=== PATIENT | male | born 1930 | race Caucasian/White ===

== ENCOUNTER 2016-09-06 13:28 | Inpatient (IN) | payer MEDICARE, MEDICAID ==
[~2016-09-06] VITALS: Ht 175.3 cm; Wt 67.2 kg
[~2016-09-06 13:28] MED LIST: ADV250INH IH; ALBU8.5H4 IH; AMIO200T6 PO; ATOR20TA PO; CA C1TAB87 PO; CARV3.12 PO; EXELON 13.3 MG TOPICAL; Isosorbide Mononitrate PO; MOME17SP NS; MONT10TA20 PO; OMEP-113 PO; QUET100T PO; QUET200T PO; WARF2TAB PO; oxygen
[2016-09-06 13:43] VITALS: BP 116/65; PULSE 74; RESP 16; O2SAT 95
--- NOTE | 2016-09-06 14:34 | ED.REPORT ---
HPI-General Illness Date of Service Sep 06, 2016 ED Provider: John Sr MD The patient is an 85 year old male with history of Alzheimer's, CHF, COPD, hypertension, and atrial fibrillation, who was brought to the emergency department by his for difficulty swallowing that has been worsening over the last few weeks. He also reports left-sided chest pain that has been ongoing for the last few months. He describes the pain as "tightness. " He has also noticed abdominal pain after eating. He is not in any pain at this time. He denies shortness of breath, vomiting, fever or chills. Nursing Notes Stated Complaint: LOW PULSE,DIFFICULTY SWALLOWING Chief Complaint: Dysrhythmia/Cardiac Nursing Notes Reviewed: Yes Allergies: Coded Allergies: Sulfa (Sulfonamide Antibiotics) (Verified Allergy, Unknown, 02/03/14) aspirin (Verified Allergy, Unknown, 02/03/14) ibuprofen (Verified Allergy, Unknown, 06/15/12) yellow dye (Verified Allergy, Unknown, 02/03/14) Scheduled ([oxygen]) 2 L NA HS Alendronate/Vitamin D3 (Alendronate/Vitamin D3) 1 Each Tablet 1 TAB PO WEEKLY on saturdays Amiodarone (Amiodarone) 100 Mg Tablet 100 MG PO DAILY Atorvastatin Calcium (Atorvastatin Calcium) 10 Mg Tablet 10 MG PO HS Fluticasone/Salmeterol (Advair 250-50 Diskus) 60 Puff/Inh Disk 1 PUFF IH BID Furosemide (Furosemide) 20 Mg Tab 20 MG PO Q2DAY Isosorbide MN ER (Isosorbide MN ER) 30 Mg Tab.er.24h 60 MG PO DAILY Memantine HCl (Namenda-XR) 28 Mg Cap.spr.24 28 MG PO DAILY Mometasone Furoate (Nasonex) 17 Gm [place].pump 1 SPRAY NS BID Montelukast (Singulair) 10 Mg Tablet 10 MG PO HS Omeprazole Magnesium (Omeprazole) 20 Mg Capsule.dr 20 MG PO DAILY Quetiapine Fumarate (Seroquel) 100 Mg Tablet 100 MG PO HS monday, monday , monday Rivastigmine (Rivastigmine) 13.3 Mg/24 Hour Patch.td24 2 PATCH TRANSDERM DAILY Warfarin Sodium (Warfarin Sodium) 2 Mg Tablet 1 MG PO DAILY Warfarin Sodium (Warfarin Sodium) 2 Mg Tablet 2 MG PO DAILY monday, , monday,monday Scheduled PRN Albuterol HFA (Albuterol HFA) 8.5 Gm Hfa.aer.ad 2 PUFF IH Q4 PRN PRN For Shortness of Breath Miscellaneous Medications Cetirizine HCl (Zyrtec) 10 Mg Capsule 10 MG PO General Time Seen by MD: 14:32 Chief Complaint Other (difficulty swallowing) Hx Obtained From: Patient (limited) Arrived By: Walk-in Sudden in Onset?: No Onset Occurred: More than a week ago... Symptom Duration: Since onset Location: : Abdomen: Chest Quality: Painful Severity: Current: No pain currently Severity: Maximum: Moderate Recent Healthcare: No recent doctor visit, No recent hospitalization Similar Sx Previous: No Past Medical History Past Medical History 1. Systolic congestive heart failure, EF 15%, severe global left ventricular hypokinesis, with moderate to severe mitral regurgitation. 2. COPD on home oxygen 2 L at night next in 3. Alzheimer's dementia 4. Hypertension excellent 5. History of proximal A. fib on Coumadin Past Surgical History 1. Tonsillectomy as a child 2. Appendectomy 3. Left sided hernia repair Family History Noncontributory Smoking History Former Smoker Social History Alcohol Use: Denies alcohol use Drug Use: Denies drug use Other Social History: Good social support, , Local resident Ambulatory Status Independent Review of Systems +difficulty swallowing Full Review of Systems Constitutional: Denies: Chills, Fever Respiratory: Denies: Shortness of breath Cardiovascular: Reports: Chest pain GI: Reports: Abdominal pain, Denies: Vomiting Complete sys rev & neg: except as marked. Physical Exam Vital Signs Vital Signs Date Time Temp Pulse Resp B/P Pulse Ox O2 Delivery O2 Flow Rate FiO2 09/06/16 13:43 36.9 74 16 116/65 95 Initial VS: Reviewed Head / Eyes: Atraumatic, Normocephalic, PERRL ENT: Mucous membranes moist, Conjunctiva normal, No scleral icterus Neck: Supple, Non-tender, Full range of motion Respiratory: Breath sounds normal, Clear to auscultation, No respiratory distress Cardiovascular: Regular rate & rhythm, Heart sounds normal, Intact distal pulses Lymphatic: No lymphadenopathy Extremities: Vascular intact, Neuro intact, No swelling, No tenderness Skin: Warm, Dry, No cyanosis Neurologic: Alert, Oriented, Nonfocal Psychiatric: Mood/affect normal, Behavior normal, Normal thought content General/Constitutional: Awake, Alert, Cooperative Abdomen: Soft, No guarding, No rebound, BS normoactive, No distention, No hernia, No palpable mass, No pulsatile mass Tenderness/Guarding/Rebound: Positive: Tender epigastric, Negative: Tender LLQ..., Tender LUQ..., Tender RLQ..., Tender RUQ... Lower Extremity / Pelvis / MS: Neurologic intact, Vascular intact, No edema No calf swelling or tenderness Interpretation & Diagnostics Lab Results Interpretation Result Diagram: 09/06/16 1507 09/06/16 1507 Test 09/06/16 15:07 White Blood Count 6.8th/mm3 (3.8-10.1) Red Blood Count 4.22mil/mm3 (4.40-5.80) Hemoglobin 12.0g/dL (13.8-17.2) Hematocrit 37.9% (41.0-50.0) Mean Corpuscular Volume 89.8fL (81-100) Mean Corpuscular Hemoglobin 28.4pg (27.0-35.0) Mean Corpuscular Hemoglobin Concent 31.7% (32.0-37.0) Red Cell Distribution Width 13.8% (12.3-15.4) Platelet Count 209bil/L (150-400) Neutrophils (%) (Auto) 68.8% (40-74) Lymphocytes (%) (Auto) 12.0% (14-46) Monocytes (%) (Auto) 16.4% (4-12) Eosinophils (%) (Auto) 0.9% (0-5) Basophils (%) (Auto) 0.4% (0-3) Sodium Level 138mEq/L (134-144) Potassium Level 4.6mEq/L (3.5-5.2) Chloride Level 100mEq/L (97-108) Carbon Dioxide Level 23mmol/L (18-29) Blood Urea Nitrogen 29mg/dL (8-27) Creatinine 1.93mg/dL (0.76-1.27) Estimat Glomerular Filtration Rate 35mL/min (>59) Glucose Level 88mg/dL (60-99) Calcium Level 8.7mg/dL (8.5-10.1) Magnesium Level 2.1mg/dL (1.6-2.6) Total Bilirubin 0.5mg/dL (0.0-1.2) Aspartate Amino Transf (AST/SGOT) 136U/L (0-50) Alanine Aminotransferase (ALT/SGPT) 64U/L (0-44) Alkaline Phosphatase 346U/L (25-160) Troponin T < 0.010ug/L (0.0-0.011) Total Protein 6.6g/dL (6.4-8.4) Albumin 3.5g/dL (3.4-5.0) Hold Alvarez Top Tube Received (Received) ECG Interpretation ECG Interpretation: Sinus vs ectopic atrial rhythm at 78 bpm with RBBB and LAFB No ST segment elevation Inferior Q waves present No acute T wave abnormalities When compared to prior dated 05/28/2014 he remains with IVCD and inferior Q waves are not new Time: 15:00 Interpreted by: ED physician X-Ray Chest Interpretation Chest Xray Interpretation: IMPRESSION: Right lower lobe pneumonia. Dictated by: Cyndee Lackey M.D. on 09/06/2016 at 15:43 Interpretation / Wet Read by: Interpret - Radiologist Re-Eval/Medical Decision Med Decision/Clinical Course The patient is an 85 year old male with history of Alzheimer's, CHF, COPD, hypertension, and atrial fibrillation, who was brought to the emergency department by his for difficulty swallowing that has been worsening over the last few weeks. The patient has underlying dementia and initially his history is quite limited. Here in the emergency department he is afebrile with stable vital signs and examination as above. Swallow eval shows pharyngeal swallowing dysfunction and probably esophageal dysfunction. Chest x-ray demonstrated a right lower lobe pneumonia. LABS: No leukocytosis, hct 37.9, BUN 29 and creatinine 1.93 - acutely elevated from baseline, moderately elevated transaminases, neg trop, no sig electrolyte abnormalities Overall presentation most consistent with aspiration pneumonia in the setting of swallowing dysfunction. Cause of his swallowing difficulties are unclear. At this time, he has no other lateralizing neurologic deficits to suggest acute ischemic stroke. His symptoms of an insidious in onset over weeks and regardless he is certainly not a TPA candidate. He has been started on IV antibiotics and will be admitted to the hospitalist service for further management. Source of Hx: Old records Time of Eval: 16:33 Re-Evaluation/Progress Note: Rechecked the patient. Discussed plan for admission with the patient and his . They understand and agree. All questions were addressed. Consultation : Consulted With: Hospitalist Requested Call at: 15:58 Vocational Evaluator: Will see patient, Agrees with eval, Agrees with plan, Accepts admit Counseled Regarding: Diagnosis, Lab results, Need for admission Discharge & Departure Primary Impression: Acute kidney injury Additional Impressions: Failure to thrive Failure to thrive age range: in adult Qualified Code: R62.7 - Adult failure to thrive Dysphagia Dysphagia type: pharyngoesophageal phase Qualified Code: R13.14 - Dysphagia , pharyngoesophageal phase Pneumonia Pneumonia type: due to unspecified organism Laterality: right Lung location : lower lobe of lung Qualified Code: J18.9 - Pneumonia, unspecified organism Disposition: ADMITTED TO HOSPITAL Discharge Condition All VS Reviewed: Yes Condition: Stable Referrals: [facility] (PCP) Krystleibatiya Attestation Portions of this note were transcribed by Gema Werner. I, Dr. Sr personally performed the history, physical exam and medical decision-making; I reviewed and confirmed the accuracy of the information in the transcribed note. Signed by: Tory Browning, 09/06/2016 and 1700. copies to: [facility] John Sr MD Sep 06, 2016 14:34 Gema Werner Sep 06, 2016 15:11
[2016-09-06 15:18] LABS: BASOPHILS % (AUTO) 0.4 % (0-3); EOSINOPHILS % (AUTO) 0.9 % (0-5); MONOCYTES % (AUTO) 16.4 % (4-12); Mean Corpuscular Hemoglobin 28.4 pg (27.0-35.0); Mean Corpuscular Volume 89.8 fL (81-100); NEUTROPHILS % (AUTO) 68.8 % (40-74); Platelet Count 209 bil/L (150-400)
[2016-09-06] MEDS ORDERED: 0.9% Sodium Chloride 1,000 ML IV ONE (15:35)
[2016-09-06 15:45] LABS: Magnesium 2.1 mg/dL (1.6-2.6)
--- NOTE | 2016-09-06 15:46 | DRSVH ---
PROCEDURE: X-RAY CHEST ONE VIEW, PORTABLE ([id number]) INDICATIONS: 85-year-old man with chest pain, dysrthymia. TECHNIQUE: One view of the chest was acquired. COMPARISON: [facility], CR, CHEST 1VW (PORTABLE), 11/19/2014, 17:56. [facility], CR, CHEST 1VW (PORTABLE), 02/03/2014, 13:49. FINDINGS: Surgical changes and devices: None. Lungs and pleura: There are right basilar infiltrate and consolidation consistent with pneumonia. Ca lcified granulomatous in the left lung base. There is left basilar scarring. No pleural effusions or pneumothorax. Mediastinum: Mediastinal contours appear normal. Heart size is mildly increased. Bones and chest wall: No suspicious bony lesions. Overlying soft tissues appear unremarkable. IMPRESSION: Right lower lobe pneumonia. Dictated by: Cyndee Lackey M.D. on 09/06/2016 at 15:43 Approved by: Cyndee Lackey M.D. on 09/06/2016 at 15:45
[2016-09-06 15:47] LABS: TROPONIN T < 0.010 ug/L (0.0-0.011)
--- NOTE | 2016-09-06 16:06 | NUR ---
Evaluation completed. Recommend modified barium swallow study. Please go to "Notes" then click on "Assessments and Notes" (bottom left corner of screen). Then select appropriate discipline tab on top of screen.
[2016-09-06] MEDS ORDERED: Azithromycin Inj 500 MG in Dextrose 5% w/Vial Mate 250 ML IV ONE (16:25)
[2016-09-06] MEDS ORDERED: cefTRIAXone Inj 2,000 MG in Dextrose 5% Minibag Plus 50 ML IV ONE (16:25)
[2016-09-06] MEDS ORDERED: CETI10CA PO (16:49)
[2016-09-06] MEDS ORDERED: ALEN70TA46 PO (16:49)
[2016-09-06] MEDS ORDERED: RIVA1PAT13 TRANSDERM (16:49)
[2016-09-06] MEDS ORDERED: AMIO100T4 PO (16:49)
[2016-09-06] MEDS ORDERED: FUR20 PO (16:49)
[2016-09-06] MEDS ORDERED: ISOS30TA4 PO (16:49)
[2016-09-06] MEDS ORDERED: ATOR10TA66 PO (16:49)
[2016-09-06] MEDS ORDERED: MEMA28CA PO (16:49)
[2016-09-06] MEDS ORDERED: WARF2TAB7 PO (16:49)
[2016-09-06] MEDS ORDERED: Piperacillin-Tazo 3.375 Gm Inj 3.375 GM in Dextrose 5% Minibag Plus 50 ML IV ONE (17:05)
[2016-09-06] MEDS ORDERED: Vancomycin Dose per Pharmacist XX ONE (17:05)
[2016-09-06 17:24] VITALS: BP 133/84; PULSE 100; RESP 16; O2SAT 93
[2016-09-06] MEDS ORDERED: Vancomycin Inj 1,250 MG in 0.9% Sodium Chloride 250 ML IV ONE (17:35)
--- NOTE | 2016-09-06 19:30 | NUR ---
Admit Pt admit to floor. Pt ambulated to bed. VSS. Pt is hard of hearing even with hearing aide.
[2016-09-06] MEDS ORDERED: Famotidine Inj 20 MG in IV Premix 1 EACH IV SCH (21:00)
[2016-09-06] MEDS ORDERED: 0.9% Sodium Chloride 1,000 ML IV SCH (21:06)
[2016-09-06] MEDS ORDERED: Albuterol 2.5 mg/3 mL Inhalation Solution NEB PRN (21:10)
--- NOTE | 2016-09-06 21:22 | PCM.HPMED ---
Subjective Date of Service Sep 06, 2016 Primary Provider: Admitting Physician: Rylee Stuart MD Primary Care Physician: Doroteo Cooper MD Attending Physician: Rylee Stuart MD Admit Status: From the Emergency Department, Full Admit, Remote Telemetry Chief Complaint: Difficulty swallowing History of Present Illness: This is an 85-year-old male with a history of Alzheimer's CHF COPD hypertension atrial fibrillation who was brought to the emergency room by his for increasing problems with swallowing which has been progressive over the past few weeks. No evidence of any fevers chills shortness of breath or wheezing. His evaluation in the emergency room did show a right lower lobe pneumonia. I am not able to get any more history as patient is not very forthcoming or communicative and is currently not at bedside. His white count was noted to be 6.8 and his BUN was 29 creatinine 1.93 which is a little bit worse than last documented in our chart which was several years ago. He denies any chest pain. Denies any nausea or vomiting. He denies any alteration in bowel movements. Review of Systems: All other review of systems are difficult to review with patient hence unobtainable secondary to patient's dementia Allergies Coded Allergies: Sulfa (Sulfonamide Antibiotics) (Verified Allergy, Unknown, 02/03/14) aspirin (Verified Allergy, Unknown, 02/03/14) ibuprofen (Verified Allergy, Unknown, 06/15/12) yellow dye (Verified Allergy, Unknown, 02/03/14) Home Medications Scheduled ([oxygen]) 2 L NA HS Alendronate/Vitamin D3 (Alendronate/Vitamin D3) 1 Each Tablet 1 TAB PO WEEKLY on saturdays Amiodarone (Amiodarone) 100 Mg Tablet 100 MG PO DAILY Atorvastatin Calcium (Atorvastatin Calcium) 10 Mg Tablet 10 MG PO HS Fluticasone/Salmeterol (Advair 250-50 Diskus) 60 Puff/Inh Disk 1 PUFF IH BID Furosemide (Furosemide) 20 Mg Tab 20 MG PO Q2DAY Isosorbide MN ER (Isosorbide MN ER) 30 Mg Tab.er.24h 60 MG PO DAILY Memantine HCl (Namenda-XR) 28 Mg Cap.spr.24 28 MG PO DAILY Mometasone Furoate (Nasonex) 17 Gm [place].pump 1 SPRAY NS BID Montelukast (Singulair) 10 Mg Tablet 10 MG PO HS Omeprazole Magnesium (Omeprazole) 20 Mg Capsule.dr 20 MG PO DAILY Quetiapine Fumarate (Seroquel) 100 Mg Tablet 100 MG PO HS monday, monday , monday Rivastigmine (Rivastigmine) 13.3 Mg/24 Hour Patch.td24 2 PATCH TRANSDERM DAILY Warfarin Sodium (Warfarin Sodium) 2 Mg Tablet 1 MG PO DAILY Warfarin Sodium (Warfarin Sodium) 2 Mg Tablet 2 MG PO DAILY monday, , monday,monday Scheduled PRN Albuterol HFA (Albuterol HFA) 8.5 Gm Hfa.aer.ad 2 PUFF IH Q4 PRN PRN For Shortness of Breath Miscellaneous Medications Cetirizine HCl (Zyrtec) 10 Mg Capsule 10 MG PO PMH Past Medical History 1. Systolic congestive heart failure, EF 15%, severe global left ventricular hypokinesis, with moderate to severe mitral regurgitation. 2. COPD on home oxygen 2 L at night next in 3. Alzheimer's dementia 4. Hypertension excellent 5. History of proximal A. fib on Coumadin Past Surgical History 1. Tonsillectomy as a child 2. Appendectomy 3. Left sided hernia repair Family History Unobtainable Social History Hx Alcohol Use: No Hx Substance Use: No Hx Tobacco Use: Yes (remote tobacco use in high school through days quit over 50 years ago) Smoking Status: Former Smoker Living Arrangement: with Family Exam Vital Signs Vital Sign - Last Date Time Temp Pulse Resp B/P Pulse Ox O2 Delivery O2 Flow Rate FiO2 09/06/16 17:24 100 16 133/84 93 Room Air 09/06/16 13:43 36.9 Exam Constitutional: Elderly man in no acute distress Head: Normocephalic atraumatic Neck: No adenopathy Chest: Reveals some crackles at his right base Cor: Regular rate and rhythm S1-S2 Abdomen: Soft nontender bowel sounds present Extremities: No pedal edema Psych: Blunted affect Skin: No rashes Neuro: Alert and oriented 3 Motor and sensory are intact bilaterally Lab and Diagnostics Labs Laboratory Tests 72 Hours Test 09/06/16 15:07 White Blood Count 6.8th/mm3 (3.8-10.1) Red Blood Count 4.22mil/mm3 (4.40-5.80) Hemoglobin 12.0g/dL (13.8-17.2) Hematocrit 37.9% (41.0-50.0) Mean Corpuscular Volume 89.8fL (81-100) Mean Corpuscular Hemoglobin 28.4pg (27.0-35.0) Mean Corpuscular Hemoglobin Concent 31.7% (32.0-37.0) Red Cell Distribution Width 13.8% (12.3-15.4) Platelet Count 209bil/L (150-400) Neutrophils (%) (Auto) 68.8% (40-74) Lymphocytes (%) (Auto) 12.0% (14-46) Monocytes (%) (Auto) 16.4% (4-12) Eosinophils (%) (Auto) 0.9% (0-5) Basophils (%) (Auto) 0.4% (0-3) Sodium Level 138mEq/L (134-144) Potassium Level 4.6mEq/L (3.5-5.2) Chloride Level 100mEq/L (97-108) Carbon Dioxide Level 23mmol/L (18-29) Blood Urea Nitrogen 29mg/dL (8-27) Creatinine 1.93mg/dL (0.76-1.27) Estimat Glomerular Filtration Rate 35mL/min (>59) Glucose Level 88mg/dL (60-99) Lactic Acid Level 1.3mmol/L (0.4-2.0) Calcium Level 8.7mg/dL (8.5-10.1) Magnesium Level 2.1mg/dL (1.6-2.6) Total Bilirubin 0.5mg/dL (0.0-1.2) Aspartate Amino Transf (AST/SGOT) 136U/L (0-50) Alanine Aminotransferase (ALT/SGPT) 64U/L (0-44) Alkaline Phosphatase 346U/L (25-160) Troponin T < 0.010ug/L (0.0-0.011) Total Protein 6.6g/dL (6.4-8.4) Albumin 3.5g/dL (3.4-5.0) Procalcitonin 0.28ng/mL (0.00-0.08) Hold Alvarez Top Tube Received (Received) Result Diagram: 09/06/16 1507 09/06/16 1507 X-Rays, CTs and MRIs PROCEDURE: X-RAY CHEST ONE VIEW, PORTABLE ([id number]) INDICATIONS: 85-year-old man with chest pain, dysrthymia. TECHNIQUE: One view of the chest was acquired. COMPARISON: [facility], CR, CHEST 1VW (PORTABLE), 11/19/2014, 17: 56. [facility], CR, CHEST 1VW (PORTABLE), 02/03/2014, 13:49. FINDINGS: Surgical changes and devices: None. Lungs and pleura: There are right basilar infiltrate and consolidation consistent with pneumonia. Calcified granulomatous in the left lung base. There is left basilar scarring. No pleural effusions or pneumothorax. Mediastinum: Mediastinal contours appear normal. Heart size is mildly increased. Bones and chest wall: No suspicious bony lesions. Overlying soft tissues appear unremarkable. IMPRESSION: Right lower lobe pneumonia. Dictated by: Cyndee Lackey M.D. on 09/06/2016 at 15:43 Approved by: Cyndee Lackey M.D. on 09/06/2016 at 15:45 Assessment & Plan #Right lower lobe pneumonia, acute, present on admission Possible aspiration pneumonia given his recent problems with swallowing difficulties so we will place on IV PIP or cell and, IV azithromycin to cover atypicals Check sputum studies including for Legionella, pneumococcal, sputum PCR # Progressive dysphagia, subacute, present on admission Initiate swallow evaluation by speech therapy May need further evaluation for this The meantime we will make nothing by mouth # Hypertension, chronic, present on admission Monitor blood pressures and treat appropriately # Atrial fibrillation on warfarin therapy, chronic problem present on admission Will hold Medication for now until his swallow evaluation tomorrow # DVT prophylaxis Patient is on warfarin therapy # CODE STATUS Unable to discuss with patient so by default patient is full code Resuscitation Status: CPR: Attempt Resuscitation Time spent 60 minutes Rylee Stuart MD Sep 06, 2016 21:22
[2016-09-06 21:30] VITALS: BP 143/80; PULSE 72; RESP 16; O2SAT 95
[2016-09-06 21:57] LABS: INR 3.26 ratio
[2016-09-06 22:25] VITALS: PULSE 77; RESP 18; O2SAT 98
[2016-09-06] MEDS: Heparin 5,000 Unit/mL Inj SUBQ SCH (22:25)
--- NOTE | 2016-09-06 22:30 | NUR ---
Isolation Precautions Droplet precautions
--- NOTE | 2016-09-06 22:39 | PCM.CONPHA ---
Subjective Date of Service: Sep 06, 2016 Difficulty swallowing Reason for Pharmacy Consult: Anticoagulation Management Objective Vital Signs Date Time Temp Pulse Resp B/P Pulse Ox O2 Delivery O2 Flow Rate FiO2 09/06/16 21:30 37.2 72 16 143/80 95 Room Air 09/06/16 17:24 100 16 133/84 93 Room Air 09/06/16 13:43 36.9 74 16 116/65 95 Weight (Kilograms): 64.800 Height (Feet): 5 Height (Inches): 9.00 Test 09/06/16 15:07 White Blood Count 6.8th/mm3 (3.8-10.1) Red Blood Count 4.22mil/mm3 (4.40-5.80) Hemoglobin 12.0g/dL (13.8-17.2) Hematocrit 37.9% (41.0-50.0) Mean Corpuscular Volume 89.8fL (81-100) Mean Corpuscular Hemoglobin 28.4pg (27.0-35.0) Mean Corpuscular Hemoglobin Concent 31.7% (32.0-37.0) Red Cell Distribution Width 13.8% (12.3-15.4) Platelet Count 209bil/L (150-400) Neutrophils (%) (Auto) 68.8% (40-74) Lymphocytes (%) (Auto) 12.0% (14-46) Monocytes (%) (Auto) 16.4% (4-12) Eosinophils (%) (Auto) 0.9% (0-5) Basophils (%) (Auto) 0.4% (0-3) Prothrombin Time 35.7sec (8.1-12.5) Prothromb Time International Ratio 3.26ratio Sodium Level 138mEq/L (134-144) Potassium Level 4.6mEq/L (3.5-5.2) Chloride Level 100mEq/L (97-108) Carbon Dioxide Level 23mmol/L (18-29) Blood Urea Nitrogen 29mg/dL (8-27) Creatinine 1.93mg/dL (0.76-1.27) Estimat Glomerular Filtration Rate 35mL/min (>59) Glucose Level 88mg/dL (60-99) Lactic Acid Level 1.3mmol/L (0.4-2.0) Calcium Level 8.7mg/dL (8.5-10.1) Magnesium Level 2.1mg/dL (1.6-2.6) Total Bilirubin 0.5mg/dL (0.0-1.2) Aspartate Amino Transf (AST/SGOT) 136U/L (0-50) Alanine Aminotransferase (ALT/SGPT) 64U/L (0-44) Alkaline Phosphatase 346U/L (25-160) Troponin T < 0.010ug/L (0.0-0.011) Total Protein 6.6g/dL (6.4-8.4) Albumin 3.5g/dL (3.4-5.0) Procalcitonin 0.28ng/mL (0.00-0.08) Hold Alvarez Top Tube Received (Received) Assessment/Plan Assessment/Plan Warfarin per Rx Indication: A-Fib Home Dose: unable to verify with Pt; 1 - 2 mg daily? Hold dose tonight until swallow eval tomorrow Daily INR ordered Carlos Dai PharmD Sep 06, 2016 22:39
[2016-09-06] MEDS ORDERED: ALBU8.5H2 INHALATION (22:46)
[2016-09-06] MEDS ORDERED: OMEP20TA24 PO (22:46)
[2016-09-07 01:47] LABS: APPEARANCE,URINE CLEAR (CLEAR,HAZY); COLOR,URINE YELLOW (YELLOW)
[2016-09-07 01:48] LABS: OCCULT BLOOD,URINE NEGATIVE (NEGATIVE); PH,URINE 7.5 (5.0-8.0); UROBILINOGEN,URINE NORMAL (NORMAL)
[2016-09-07 05:24] VITALS: BP 140/76; PULSE 85; RESP 16; O2SAT 95
[2016-09-07 05:38] LABS: BASOPHILS % (AUTO) 0.3 % (0-3); EOSINOPHILS % (AUTO) 1.1 % (0-5); MONOCYTES % (AUTO) 16.5 % (4-12); Mean Corpuscular Hemoglobin 28.4 pg (27.0-35.0); Mean Corpuscular Volume 89.6 fL (81-100); NEUTROPHILS % (AUTO) 66.1 % (40-74); Platelet Count 193 bil/L (150-400)
[2016-09-07] MEDS: Piperacillin-Tazo 3.375 Gm Inj 3.375 GM in Dextrose 5% Minibag Plus 50 ML IV SCH ×2 (05:46→18:16)
[2016-09-07 06:14] LABS: INR 3.18 ratio
[2016-09-07] MEDS: Heparin 5,000 Unit/mL Inj SUBQ SCH ×2 (09:10→22:11)
[2016-09-07] MEDS: Azithromycin Inj 500 MG in Dextrose 5% w/Vial Mate 250 ML IV SCH (10:16)
--- NOTE | 2016-09-07 11:09 | PCM.PNMED ---
Subjective Date of Service Sep 07, 2016 Subjective No overnight event Patient has taken hearing difficulties Oriented to name and place knows it's hospital Patient stated that he was able to at least drink water, thick fluid but has more difficulty of swallowing with solid food Denied odynophagia Patient does not think that he lost some weight Feels hungry at the moment Denies any abdominal pain, nausea, vomiting Exam Vital Signs Vital Sign - Last Date Time Temp Pulse Resp B/P Pulse Ox O2 Delivery O2 Flow Rate FiO2 09/07/16 05:24 36.9 85 16 140/76 95 Room Air 09/06/16 22:25 2.00 Intake and Output 09/06/16 09/06/16 09/07/16 Cumulative From/Thru 15:00 23:00 07:00 09/06/16 15:39 - 09/07/16 06:20 Intake Total 1000 ml 1095 ml 2095 ml Output Total 500 ml 500 ml Balance 1000 ml 595 ml 1595 ml Intake Oral 0 ml 0 ml IV Total 1000 ml 1095 ml 2095 ml Output Urine Total 500 ml 500 ml # Bowel Movements 1 1 Exam Cachectic elderly male, pleasant no JVD, MMM, no LAD RRR, nl s1, s2 no mrg CTAB, no w,c S,ND,NT,normoactive BS+ warm, no edema, pulses 2/2 IVs and Medications Medications Reviewed: Medications were reviewed in detail Lab and Diagnostics Result Diagram: 09/07/1651709/[id number]/16517 X-Rays, CTs and MRIs PROCEDURE: X-RAY CHEST ONE VIEW, PORTABLE ([id number]) INDICATIONS: 85-year-old man with chest pain, dysrthymia. TECHNIQUE: One view of the chest was acquired. COMPARISON: [facility], , CHEST 1VW (PORTABLE), 11/19/2014, 17: 56. [facility], , CHEST 1VW (PORTABLE), 02/03/2014, 13:49. FINDINGS: Surgical changes and devices: None. Lungs and pleura: There are right basilar infiltrate and consolidation consistent with pneumonia. Calcified granulomatous in the left lung base. There is left basilar scarring. No pleural effusions or pneumothorax. Mediastinum: Mediastinal contours appear normal. Heart size is mildly increased. Bones and chest wall: No suspicious bony lesions. Overlying soft tissues appear unremarkable. IMPRESSION: Right lower lobe pneumonia. Dictated by: Cyndee Lackey M.D. on 09/06/2016 at 15:43 Approved by: Cyndee Lackey M.D. on 09/06/2016 at 15:45 Assessment & Plan acute, active #progressive dysphagia, malnutrition, deconditioning, no significant odynophasia , POA, unclear onset at least>1mo, cannot rule out structural dz, esophagitis, mass, malignancy, hernia. -as per collateral information per , pt had similar episode first 40yrs ago , had EGD showed ulcers and bleeding in esophagus, since then was on PPI, couple years ago, pt also had barium swallow, ?EGD, unclear about the result, but since then, pt has been on dysphagia diet, all meds crushed. also stated that until 2wks ago, pt was tolerating dysphagia well but it progressively worse to the point that he couldn't tolerate small mount of thick soup, some oral crushed meds. -per s/s, scheduled for MBBS, likely to consult GI as well based on the result -keep NPO, NS stopped, changed to d5 1/2 ns 100cc/hr for insensible loss #probable RLL lobar PNA, POA, unknown onset, possible aspiration episode with dysphagia suspected. -continue zosyn, azithromycin for now, -follow up infectious w/u -BCX, resp PCR, strep Ag, MRSA chronic, stable # Hypertension, chronic, hold BP med for now # Atrial fibrillation on warfarin therapy, hold AC for now until s/s eval done #hx CHF, EF 15%, severe global left ventricular hypokinesis, with moderate to severe mitral regurgitation, euvolemic now, will repeat TTE prior to possible EGD, will use nitro patch for now #COPD on home oxygen 2 L at night, continue nocturnal O2 2liter, alb prn #Alzheimer's dementia, continue rivastigmine patch dispo: likely 1-2 more days, needs PT to optimize dispo diet: NPO for now dvt ppx: systemic AC, INR in tx range Full Code, discussed with patient Resuscitation Status: CPR: Attempt Resuscitation Time spent 35 minutes Julian Iyer MD Sep 07, 2016 11:09
[2016-09-07] MEDS ORDERED: RIVASTIGMINE TRANSDERM SCH (11:10)
--- NOTE | 2016-09-07 11:17 | NUR ---
Evaluation completed in ED on 09/06/16. Recommendation was for stimulation diet and modified barium swallow study. Received verbal order for MBSS from Dr. Iyer on 09/07/16. Ordered placed in [employer].
[2016-09-07] MEDS ORDERED: RIVASTIGMINE TOPICAL SCH (12:00)
--- NOTE | 2016-09-07 12:24 | PCM.PHAPRO ---
Progress Date of Service: Sep 07, 2016 Difficulty swallowing Warfarin management per pharmacy Indication: atrial fibrillation INR goal: 2-3 Date -Sep 07-Aug INR 3.26 3.18 INR change -0.08 Dose HOLD XXX Yesterday's dose was held pending swallow eval (as well as supratherapeutic INR) . INR today remains supratherapeutic and Dr. Iyer's note indicates patient is to remain NPO. Continue to hold warfarin dose tonight. Pharmacy to continue to monitor and dose warfarin daily. Thank you, Latanya Lyon Pharmacist Latanya Lyon Sep 07, 2016 12:24
[2016-09-07 12:36] VITALS: BP 122/82; PULSE 67; RESP 17; O2SAT 95
[2016-09-07] MEDS: Dextrose 5% 0.45% NaCl 1,000 ML IV SCH ×2 (12:38→21:05)
[2016-09-07] MEDS ORDERED: ALEN70SO3 PO (12:40)
[2016-09-07] MEDS ORDERED: ALBU18HF INH (12:40)
[2016-09-07] MEDS ORDERED: FLUT15.88 NASAL (12:40)
[2016-09-07] MEDS ORDERED: CALC-952 PO (12:40)
[2016-09-07] MEDS ORDERED: WARF1TAB6 PO (12:41)
[2016-09-07] MEDS ORDERED: ADV250INH IH (13:05)
--- NOTE | 2016-09-07 14:12 | NUR ---
Pt taken to Radiology for modified barium swallow. Speech therapist reported from testing pt needs to be strict NPO. Distal stricture in esophagus. Possible NG tube needed for medication administration. Speech was contacting dr wilson. Addendum: 09/07/16 at 1512 by FLORINA KING RN Correction from previous note. Not NG tube, PEG tube a possibility.
--- NOTE | 2016-09-07 15:26 | ST BAR ---
[address] [address] SPEECH BARIUM SWALLOW STUDY PATIENT: DANNY CLAIRE : 1930 MR#: [id number] ADMIT: 09/06/2016 JOB ID: [id number] INITIAL INPATIENT MODIFIED BARIUM SWALLOW STUDY: DATE OF SERVICE: 09/07/2016 PRIMARY CARE PHYSICIAN: Doroteo Cooper MD REFERRING PHYSICIAN: Dr. Jaylon PURVIS #: [id number] G CODES AND MODIFIERS: [id number] CN, [id number] CN, 8998 CN ONSET DATE: August 2016 THERAPIST: Tran Rankin MA CCC-AIRPORT PLANNER PRIMARY DIAGNOSIS: Right lower lobe pneumonia with progressive dysphagia. TREATMENT DIAGNOSIS: Dysphagia. VISITS FROM START OF CARE: One. FURTHER THERAPY RECOMMENDED: No further therapy is recommended at this time until a GI consult has been completed. RECOMMENDATIONS: The patient is to remain strict n.p.o. until GI consult is completed or plan of care is changed. PATIENT GOAL: To eat and drink safely. CURRENT RELEVANT HISTORY: This is a very kind 85-year-old male who was evaluated by myself in the emergency department yesterday after he presented with progressive dysphagia and was diagnosed with a right lower lobe pneumonia. The patient has a medical history for significant for Alzheimer's dementia, COPD on home oxygen 2 L, CHF with ejection fraction of 15%, severe left ventricular hypokinesis and moderate to severe mitral regurg, AFIB on warfarin therapy, and hypertension. The patient resides at home with his and he reported that swallowing has become more and more difficult. The patient demonstrated signs and symptoms of both pharyngeal and esophageal dysphagia at time of clinical bedside evaluation and it was recommended that a modified barium swallow study be completed to not only assess the pharyngeal phase of swallow but also the esophageal phase of swallow based on the patient's complaints and symptoms. A verbal order was received from Dr. Iyer and the current study was completed to fully assess aspiration risk as well as swallowing mechanism. MEDICAL NECESSITY: Aspiration risk. PRIOR LEVEL OF FUNCTION: The patient lives independently with his . She provides meals and does cooking. PREVIOUS THERAPY: Unknown. RELEVANT HOSPITALIZATIONS: Unknown. FUNCTIONAL LIMITATIONS: Progressive dysphagia, malnutrition, and deconditioning. The patient reports he can only eat a couple of bites before a full sensation occurs in his chest and he is not able to eat any more. The patient reported vomiting after eating at times. BASELINE TESTS AND MEASURES: The patient stood for the modified barium swallow study and was viewed laterally. Textures were presented in the following order: Honey thick liquid, nectar thick liquid, puree. Oral phase: Labial seal was complete. Mastication was decreased due to ill-fitting dentures. AP propulsion was slow. Bolus prep was somewhat discoordinated. Pharyngeal phase: Premature spillage: Yes, to the level of the vallecula. Laryngeal excursion was complete. Swallow reflex was delayed. Vallecular and piriform sinus residue remained. Piriform sinus residue was mild. Laryngeal penetration: Yes, with honey thick liquids. Penetration remained in the laryngeal vestibule after the swallow. On the followup swallow that honey thick liquid residue was aspirated, along with nectar thick liquids. Aspiration was silent. Cough was not initiated without maximal prompting and after 30+ seconds. Vocal quality was hoarse. Esophageal phase: Please see radiology report for further details. Cricopharyngeal relaxation appeared within functional limits. 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 In the distal esophagus what appeared to be a severe distal esophageal sphincter was viewed that is suspicious to be a neoplastic stricture. These findings were discussed with both the radiologist administrative assistant office manager and with Dr. Iyer at the conclusion of the study. Esophageal scan: Please see radiology report for further details. The patient may benefit from an upper endoscopy. Compensatory strategies: Supraglottic swallow was attempted; however, due to patient's level of hearing loss it was unsuccessful. The patient is able to follow directions if he can hear the directions being given. He was not able to hear in the environment. EVALUATION RESULTS: This is a very pleasant 85-year-old male who was seen for an initial inpatient modified barium swallow study due to progressive dysphagia, weight loss, malnutrition, and diagnosis of right lower lobe pneumonia. Concerns for esophageal and pharyngeal phase dysphagia were noted at clinical bedside evaluation on September 06, 2016. The patient presented today with severe pharyngeal and esophageal dysphagia characterized by silent aspiration of thickened liquids due to weakness, decreased pharyngeal sensation, and poor swallow timing. 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 The stricture was so severe that pureed barium was not passing through during esophageal scan. While the patient was able to safely clear pureed textures through his pharynx, residue remained in the esophagus and the patient began vomiting shortly after the conclusion of the study. The patient expelled white barium thick emesis and appeared to be quite uncomfortable. At this time it is recommended the patient remain strict n.p.o. until a GI workup is completed with the possible endoscopy to determine treatment options for the esophageal stricture. Medications should be given via IV. It is also recommended the patient receive a palliative care consult due to the severity of his dysphagia, his significant medical history, and the recommendation that he is not safe to eat or drink anything at this time. These recommendations were shared with both Dr. Iyer and the patient's RN at the conclusion of the study. No further speech therapy services are recommended until further workup is completed by GI and the physician team. Thank you very much for this consult. Please reorder consultation as needed. CC: Dr. Jaylon CORNEJO
--- NOTE | 2016-09-07 16:52 | DRSVH ---
PROCEDURE: X-RAY BARIUM SWALLOW WITH FOOD & VIDEOGRAPHY ([id number]) INDICATIONS: Aspiration pneumonia TECHNIQUE: Examination was conducted in conjunction with speech pathology per standard protocol. In the lateral projection, filming was performed of the patient swallowing. AP projection filming may also be performed with patient swallowing. COMPARISON: [facility], , BARIUM SWALLOW/SPEECH VIDEO, 08/15/2014, 10:23. FINDINGS: Function: The oral preparatory phase appears normal with proper containment. The subsequent oral pro pulsive phase, pharyngeal phase, and esophageal phase of swallowing also appear normal with all proff ered substances. Pathologic vallecular pooling redemonstrated and silent tracheobronchial aspiration . Zenker's diverticulum again noted. Morphology: No cricopharyngeal bar is identified. No cervical esophageal webs. Limited evaluation of distal esophagus demonstrates a high-grade irregular stricture proximal to the GE junction. IMPRESSION: 1. Silent tracheobronchial aspiration redemonstrated. 2. 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 3. Zenker diverticulum. 4. Irregular distal esophageal stricture, which may be related to inflammatory stricture, but neoplasm c annot be excluded. Endoscopy is recommended. Dictated by: Haider CARR Interpreted: Santino Donis MD on 09/07/2016 at 15:12 Transcribed by: CARLOTA on 09/07/2016 at 19:52 Approved by: Santino Donis M.D. on 09/08/2016 at 2:10
[2016-09-07] MEDS: RIVASTIGMINE TOPICAL SCH (17:00)
--- NOTE | 2016-09-07 17:17 | DRSVH ---
[facility] [address] [place] [address] Echocardiogram Report Name: DANNY CLAIRE Date: 09/07/2016 Height: 69 in Hospital Exam Location: [facility] Weight: 143 lb Gender: Male BSA: 1.8 m2 : 1930 Age: 85 yrs BP: 122/82 mmHg Reason For Study: Congestive Heart Failure Ordering Physician: Performed By: Kayleigh BillingsleyAnderson [facility] Hospital[facility] Interpretation Summary The left ventricle is severely dilated. Left ventricular systolic function is severely reduced. The ejection fraction is estimated to be 20-25%. The anteroseptal wall appears to have the most preserved contractility but overall there is severe global hypokinesis with significant dyssynchrony. The right ventricle is normal in size and function. The right ventricular systolic pressure is estimated at 29 mmHg assuming a right atrial pressure of 3 mm Hg. The left atrium is severely dilated. Right atrial size is normal. There is moderate calcification extending into the subvalvular apparatus. There is mild to moderate mitral annular calcification. There is mild to moderate mitral regurgitation. Leaflet mobility is mild to moderately reduced. There is no hemodynamically significant valvular aortic stenosis. There is no other significant valvular heart disease. The aortic root is mildly dilated. The ascending aorta is mild-moderately enlarged. The aortic arch is mild-moderately enlarged. Procedure: A two-dimensional transthoracic echocardiogram with color flow and Doppler was performed. The study quality was technically adequate. Comparison is made with the echocardiogram of 11-26-07. The patients liver appears mottled and enlarged. The patient was in atrial fibrillation with heart rates between 82-95 bpm during the exam. Left Ventricle: The left ventricle is severely dilated. There is normal left ventricular wall thickness. Left ventricular systolic function is severely reduced. The ejection fraction is estimated to be 20-25%. The anteroseptal wall appears to have the most preserved contractility but overall there is severe global hypokinesis with significant dyssynchrony. Diastolic function could not be accurately assessed due to atrial fibrillation. Right Ventricle: The right ventricle is normal in size and function. Atria: The left atrium is severely dilated. Right atrial size is normal. The interatrial septum is intact with no evidence for an atrial septal defect. The thickening of interatrial septum suggests lipomatous hypertrophy. Mitral Valve: The mitral valve leaflets appear mildly thickened, but open well. There is moderate calcification extending into the subvalvular apparatus. There is mild to moderate mitral annular calcification. There is mild to moderate mitral regurgitation. Aortic Valve: The aortic valve is trileaflet. Leaflet mobility is mild to moderately reduced. There is no hemodynamically significant valvular aortic stenosis. No aortic regurgitation is present. Tricuspid Valve: The tricuspid valve leaflets are thin and pliable. There is mild tricuspid regurgitation. The right ventricular systolic pressure is estimated at 29 mmHg assuming a right atrial pressure of 3 mm Hg. Pulmonic Valve: The pulmonic valve is not well seen, but is grossly normal. There is trace pulmonic regurgitation. There is no other significant valvular heart disease. Great Vessels: The aortic root is mildly dilated. The ascending aorta is mild-moderately enlarged. The aortic arch is mild-moderately enlarged. The IVC is of normal diameter and collapses greater than 50% with a sniff. This suggests a low right atrial pressure of 3 mm Hg. Pericardium/ Pleura There is no pericardial effusion. There is no pleural effusion. MMode/2D Measurements & Calculations LVIDd: 6.9 cm LA dimension RA long axis: 4.5 cm LVOT diam: 2.6 cm LVIDs: 5.6 cm AoV Openin.3 cm FS: 18.4 % LA A2 area RA area: 11.4 cm Ao root diam: 4.0 cm IVSd: 1.0 cm RA vol: 24.6 ml Aortic Jxn: 3.1 cm LVPWd: 0.82 cm RA : 13.8 ml/m asc Aorta Diam: 4.0 cm LA A4 area RVDd major: 5.7 cm Ao Arch Diam (Prox Trans): 3.7 cm LA length (vol) LA vol: 90.4 ml LA vol index IVC diam: 2.0 cm EDV(MOD-sp2) ABAD (plan) LV mason. diameter/BSA LV sys. diameter/BSA : 174.0 ml : 2.1 cm2 (cm/m^2): 3.9 (cm/m^2): 3.2 RVD1 (basal) RVD2 (mid) : 3.2 cm Doppler Measurements & Calculations Ao V2 max MV P1/2t: 58.8 msec Pulm A Revs TR max deven : 166.7 cm/sec MR ERO: 0.09 cm2 Dur: 0.18 sec : 203.2 cm/sec Ao max P.1 mmHg TR max PG Ao mean P.0 mmHg : 16.5 mmHg LVOT Max Deven PA V2 max : 63.2 cm/sec : 75.4 cm/sec ABAD(I,D): 2.0 cm PA mean PG sev ratio: 0.39 : 0.95 mmHg MV P1/2t max deven Ao V2 mean LV V1 max PG MR flow rate : 98.5 cm/sec : 46.8 cm3/sec MVA(P1/2t): 3.7 cm2 Ao V2 VTI: 31.3 cm LV V1 VTI MR PISA radius ABAD(V,D): 2.0 cm2 : 12.2 cm PA V2 mean ABAD indexed to BSA : 43.3 cm/sec (cm^2/m^2): 1.1 Reading Physician:GEETA
[2016-09-07 18:21] VITALS: BP 153/91; PULSE 79
--- NOTE | 2016-09-07 19:22 | NUR ---
assumed care/nitro patch Received report from Kezia RN at 1752 and assumed care of pt this evening. Antibiotics hung per orders. BP 153/91, ordered nitropatch applied to left upper chest per orders, report to next shift at 1900. Care continues.
[2016-09-07 22:36] VITALS: BP 122/69; PULSE 53; RESP 18; O2SAT 93
--- NOTE | 2016-09-07 23:25 | CONS ---
[address] [address] CONSULTATION REPORT PATIENT: DANNY CLAIRE : 1930 MR#: [id number] ADMIT: 09/06/2016 JOB ID: [id number] DATE OF SERVICE: 09/07/2016 REQUESTING PROVIDER: Dr. Julian Iyer. REASON FOR CONSULTATION: Dysphagia. HISTORY OF PRESENT ILLNESS: This is an 85-year-old male admitted on September 06 secondary to progressive challenges with swallowing. In the emergency department, he was found to have a right lower lobe pneumonia that was thought to likely be an aspiration-type event. That said, he is relatively asymptomatic on that score. He did have a slight elevation in his procalcitonin level. He has been commenced on antibiotic. The patient has been losing weight, and has had progressive difficulty with solids. A speech pathology driven barium paste assessment revealed the presence of a Zenker's, significant oropharyngeal dysfunction with pathologic vallecular and piriform sinus pooling. However, he also had an irregular distal esophageal stricture that, by contrast standards, was quite concerning for the possibility of a neoplasm. The patient denies any abdominal pain, nausea or vomiting. He does state his swallowing has been progressive over the last couple of months. He has lost weight; he did not indicate just how much. He does not recall a history of reflux over the years. The patient reports that his bowels are fairly regular. He has not noted any signs of GI bleeding. ALLERGIES: 1. SULFA. 2. ASPIRIN. 3. IBUPROFEN. 4. YELLOW DYE. MEDICATIONS: 1. Coumadin. 2. Rivastigmine patch. 3. Amiodarone. 4. Atorvastatin. 5. Isosorbide mononitrate. 6. Namenda. 7. Seroquel. 8. Calcium carbonate with vitamin D 3. 9. Furosemide. 10. Advair. 11. Singulair. 12. Fluticasone nasal spray. 13. Omeprazole 20 mg once daily. 14. Alendronate 70 mg weekly. 15. Oxygen 2 L by nasal cannula at night. 16. Apparently also takes albuterol p.r.n. 17. Carvedilol. 18. Cetirizine, 19. Nasonex. PAST MEDICAL HISTORY: 1. CHF. 2. COPD on home O2 at night. 3. Alzheimer's dementia. 4. Hypertension. 5. Atrial fibrillation. PAST SURGICAL HISTORY: 1. Left-sided hernia repair. 2. Appendectomy. 3. Tonsillectomy. FAMILY HISTORY: Noncontributory. SOCIAL HISTORY: Former smoker. The patient is . REVIEW OF SYSTEMS: Apart from the HPI, review at present is negative. PHYSICAL EXAMINATION: Blood pressure 122/82, breathing 17, temperature 36.8, pulse 67, pulse ox 95% on room air. The patient was in no distress. Alert, appropriate, interactive. Very hard of hearing. I had to yell right next to his ear even with a hearing aid in situ. Heart was irregular. I did not hear any wheezing bilaterally. No significant peripheral edema. Abdomen was soft, nontender, nondistended. LABORATORY DATA: White count normal 6.2, hemoglobin 11.7, hematocrit 36.9, MCV 89.6, platelets 193. INR is still elevated at 3.18. Liver chemistries reveal a bilirubin 0.6, alk phos 332, AST 135, ALT 58, troponin negative, albumin 3.1, protein 5.3. Sodium 139, potassium 4.2, chloride 104, bicarb 20, BUN 22, creatinine 1.65 which was down from 1.93 on admission. IMAGING: Barium swallow as above. Chest x-ray revealed a right lower lobe pneumonia. ASSESSMENT/RECOMMENDATION: An 85-year-old male with significant cardiac comorbidities including congestive heart failure and atrial fibrillation on chronic anticoagulation with a history of chronic obstructive pulmonary disease, oxygen-requiring, who has been experiencing progressive weight loss and difficulty swallowing. He has a Zenker's diverticulum which could very easily contribute to an aspiration pneumonia. However, additionally, he has evidence of obstruction on his barium in the distal esophagus which was quite concerning at least radiographically. In context with the weight loss, I am concerned about neoplasm. That said, he has been taking Fosamax each week and this would almost certainly cause pretty severe ulceration in the distal esophagus if it were recurrently dissolving in this location. He certainly warrants further investigation with endoscopy. He is a high-risk patient and anesthesia will be required for his procedure. That said, it certainly does not appear to be an emergency at this stage and with this INR still in the 3 range, I think it would be reasonable to perhaps shoot for Monday rather than tomorrow as I had originally planned and anticipated. This should allow his team to ideally get his INR down into a range where we could more safely biopsy should there be a lesion there that warrants histopathology assessment. In the meantime, I would recommend any smoothie or soft diet at the discretion of the speech pathology team with specific strategies or compensatory mechanisms to avoid recurrent aspiration between now and his anticipated EGD. If this does route salesperson to be an esophageal cancer at the level of the GE junction, his liver chemistries at this point are a little suspect and I would be concerned about the prospect of a stage IV process. I see that his kidneys would not really support an IV contrasted CT scan. Perhaps an MRCP would be an somewhat helpful.
[2016-09-08] MEDS: HYDROmorphone 1 mg/mL Inj IVPUSH PRN ×2 (00:38→15:39)
[2016-09-08] MEDS: Dextrose 5% 0.45% NaCl 1,000 ML IV SCH ×2 (03:32→22:10)
[2016-09-08] MEDS: Piperacillin-Tazo 3.375 Gm Inj 3.375 GM in Dextrose 5% Minibag Plus 50 ML IV SCH ×2 (05:27→18:20)
[2016-09-08 05:40] VITALS: BP 151/89; PULSE 70; RESP 20; O2SAT 92
[2016-09-08 06:11] LABS: BASOPHILS % (AUTO) 0.4 % (0-3); MONOCYTES % (AUTO) 16.7 % (4-12); Mean Corpuscular Volume 88.2 fL (81-100); Platelet Count 227 bil/L (150-400)
[2016-09-08 06:27] LABS: Magnesium 1.9 mg/dL (1.6-2.6); Phosphorus 2.9 mg/dL (2.5-4.9)
--- NOTE | 2016-09-08 06:28 | NUR ---
Pain c/o throat and epigastric pain x1 this shift. MD notified with new orders for prn Dilaudid 1mg IVP. Dose administered and effective with no further complaints.
[2016-09-08 06:34] LABS: INR 2.56 ratio
--- NOTE | 2016-09-08 09:00 | PCM.PHAPRO ---
Progress Date of Service: Sep 08, 2016 Difficulty swallowing Warfarin management per pharmacy Indication: atrial fibrillation INR goal: 2-3 (per Dr. Peña - goal of 1.5 for pre-op). Endoscopy scheduled for 09/09/16. Date -Sep 07-Sep 08-Aug INR 3.26 3.18 2.56 INR change -0.08 -0.62 Warf Dose HOLD HOLD XXX INR is therapeutic for patient's usual INR goal; however, Dr. Peña has adjusted the INR goal to 1.5 for scheduled endoscopy tomorrow. Patient is anticoagulated on heparin SQ. Continue to hold warfarin dose tonight per Dr. Peña. Warfarin restart is pending endoscopy results. Pharmacy to continue to monitor and dose warfarin daily. Thank you, Latanya Lyon Pharmacist Latanya Lyon Sep 08, 2016 09:00
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
[2016-09-08 10:51] VITALS: BP 134/84; PULSE 66; RESP 16; O2SAT 98
[2016-09-08] MEDS: Azithromycin Inj 500 MG in Dextrose 5% w/Vial Mate 250 ML IV SCH (10:58)
[2016-09-08] MEDS: Heparin 5,000 Unit/mL Inj SUBQ SCH ×2 (10:59→22:10)
--- NOTE | 2016-09-08 11:16 | NUR ---
Palliative Care Palliative Care received verbal order from Dr Gonsalez 09/08/16 to assist with goals of care. Patient is an 85 year old man with history of Alzheimer's, CHF, COPD, HTN and Afib. He has been experiencing progressive weight loss and difficulty swallowing over the past few weeks. Patient was admitted for care 09/06/16. The Palliative Care Team saw patient in 01/2014. Patient lives at home with his . Regina Lozano () [phone] Palliative Care to follow. Daniela Bonner
--- NOTE | 2016-09-08 14:22 | NUR ---
NUTRITION ASSESSMENT: ASSESS: Pt is an 85yo M admitted for SAMY, dysphagia and failure to thrive. He has reportedly been having progressive wt loss, however pt is unable to give exact amount of wt loss. Per chart review pt's wt was ~70kg in 2013 and is now 65kg. reported that pt eats small, frequent meals but mainly only eats power bars. He has significant swallowing issues. ST is following and placed pt on stimulation diet. ST is recommending a MBS. There is concern that the pt has esophageal ca. He is to have an EGD. Palliative care is involved and pt and do not want nutrition support. PMHX: Dementia, CHF, COPD, HTN, Afib LABS: Reviewed. Rock Singer 1.55, Glu 121, Ca 7.9, AST 130, ALT 60, Alk phos 437, Alb 3.3 MEDS: Reviewed. GI: BMx3 09/07 SKIN: Ghassan 20 CURRENT WTS: 64.8kg, BMI 21.1kg/m2. Pt with reported wt loss DIET: Stimulation, NT liquids. EST. NEEDS: Kcals: 1620-1945kcal/day (25-30kcal/kg) Pro: 65-80g/day (1.0-1.2g/kg) NUTRITION DIAGNOSIS: 1.) Inadequate oral intake related to severe dysphagia as evidence by reported wt loss and ability to only tolerate stimulation diet 2.) Chew/swallow difficulty related to severe dysphagia as evidence by need for stimulation diet per ST NUTRITION INTERVENTION: 1.) Will add Mighty Shakes to all trays 2.) Continue diet per ST 3.) Pt is allergic to yellow dye so he cannot have Pineapple or Jackson Gelatein or [place] Sherbet Magic Cups due to allergy MONITOR / EVAL: PO, wt, ST, POC, nutrition status. Will continue to monitor per high nutrition risk guidelines. Addendum: 09/09/16 at [address] Pt's MBS revealed severe pharyngeal and esophageal dysphagia. ST has made pt NPO. Will continue to monitor per high nutrition risk guidelines
[2016-09-08] MEDS ORDERED: Phytonadione (Adult) 5 MG in Dextrose 5%-Pha MIX 50 ML IV ONE (14:25)
--- NOTE | 2016-09-08 15:47 | NUR ---
Social Work Initial Assessment: SW met with patient at bedside to discuss discharge plan. Patient is an 85 year old male admitted on 09/06/16 for SAMY, dysphagia, failure to thrive. Patient is hard of hearing and SW obtained consent from patient to speak with . Patient Lizeth, verified information. Patient resides in [place] with . Patient payer as Medicare and Medicaid. Patient has no halfway disability nor VA benefits. Patient PCP as MD Cooper. Patient resides in a one story home. Patient uses a walker and 02 at home. Patient pharmacy of choice as mail order. Patient has previous HHC history with [facility] in past. Patient has previous SNF history. Patient active with [facility] program for caregiver services but patient states that she has fired 2 caregiver aids already due to lack of care. Patient states that she has been assisting with meal prep for patient for 3 weeks with no additional support from a caregiver. SW attempted to discuss discharge options with patient . wanting to discuss clinical status with MD prior to discharge recommendations. Patient open to HHC via [facility] if patient appropriate to discharge home. SW to discuss SNF options pending further clinical course. SW spoke to [employer] rep Ting Rojas who states that patient current with services but has fired all aids. Ting states that patient was provided with [facility] registry for alternative aid. Per Ting no other aid found for patient at this time due to patient area. SW faxed clinicals to [phone]. SW to follow pending further clinical course PLAN: SW will continue to follow pending further clinical course. Patient resides with . Patient active with [employer] but fired all previous caregivers. [facility] following for new caregiver. Possible HHC vs SNF. SW to re-discuss discharge options of HHC vs SNF, pending clinical course Donnell JJ Addendum: 09/08/16 at 1609 by FATOUMATA HARRELL Amended: Links added.
--- NOTE | 2016-09-08 18:10 | PCM.PNMED ---
Subjective Date of Service Sep 08, 2016 Subjective Patient reports that his throat is causing him some pain, and that he has not been able to eat because of it. Patient also reports it is causing him to have a cough. Patient states that he also feels quite fatigued today. Patient denies any chest pain, shortness of breath, nausea, vomiting, diarrhea. Exam Vital Signs Vital Sign - Last Date Time Temp Pulse Resp B/P Pulse Ox O2 Delivery O2 Flow Rate FiO2 09/08/16 10:51 36.2 66 16 134/84 98 Room Air 09/06/16 22:25 2.00 Intake and Output 09/07/16 09/07/16 09/08/16 Cumulative From/Thru 15:00 23:00 07:00 09/06/16 15:39 - 09/08/16 00:42 Intake Total 871 ml 0 ml 2966 ml Output Total 1150 ml 1650 ml Balance -279 ml 0 ml 1316 ml Intake Oral 0 ml IV Total 871 ml 0 ml 2966 ml Output Urine Total 1150 ml 1650 ml # Bowel Movements 2 3 Exam General: Frail elderly gentleman sitting up in bed, patient is very hard of hearing. No acute distress, well-developed, well-nourished, appropriately interactive HEENT: Normocephalic, atraumatic. External ears without defect. Pupils equal, round, and reactive to light and accommodation. Moist conjunctivae. Oropharynx with moist mucosa. Neck: Supple with full range of motion.No lymphadenopathy Cardiovascular: Regular rate and rhythm with no murmurs, rubs, or gallops appreciated Pulmonary: Clear to auscultation bilaterally with no crackles, wheezes, or rhonchi. Normal respiratory effort with no use of accessory muscles. Abdomen: Bowel tones present. Soft, nontender, nondistended. Extremities: No clubbing, cyanosis, edema, appreciated. Skin: Normal temperature, turgor, and texture; no rash, ulcers, or subcutaneous nodules appreciated. Psychiatric: Normal mood and affect. Alert and oriented to person, place, and time. IVs and Medications Medications Reviewed: Medications were reviewed in detail Lab and Diagnostics Result Diagram: 09/08/1652009/08/16520 X-Rays, CTs and MRIs PROCEDURE: X-RAY CHEST ONE VIEW, PORTABLE ([id number]) INDICATIONS: 85-year-old man with chest pain, dysrthymia. TECHNIQUE: One view of the chest was acquired. COMPARISON: [facility], CR, CHEST 1VW (PORTABLE), 11/19/2014, 17: 56. [facility], CR, CHEST 1VW (PORTABLE), 02/03/2014, 13:49. FINDINGS: Surgical changes and devices: None. Lungs and pleura: There are right basilar infiltrate and consolidation consistent with pneumonia. Calcified granulomatous in the left lung base. There is left basilar scarring. No pleural effusions or pneumothorax. Mediastinum: Mediastinal contours appear normal. Heart size is mildly increased. Bones and chest wall: No suspicious bony lesions. Overlying soft tissues appear unremarkable. IMPRESSION: Right lower lobe pneumonia. Dictated by: Cyndee Lackey M.D. on 09/06/2016 at 15:43 Approved by: Cyndee Lackey M.D. on 09/06/2016 at 15:45 Assessment & Plan Chronic dysphagia, present on admission, ongoing -Patient underwent barium swallow which demonstrated Zenker's diverticulum and distal esophageal strictures -Speech therapy recommended that the patient remain nothing by mouth until further evaluation can be performed -GI has been consulted and evaluated the patient, we appreciate their recommendations -Patient is scheduled for EGD in the morning -Patient to remain nothing by mouth -Spoke with the patient's who is his DPOA regarding treatment options, she states she would like to go through with the EGD to find out what is causing his dysphagia, but is unsure at this time how much treatment will proceed with Acute right lower lobe pneumonia, present on admission, ongoing -Ammonias likely secondary to aspiration in the setting of patient's dysphagia -Currently being treated with azithromycin and Zosyn -Viral panel negative -Blood cultures with no growth for the past 2 days -MRSA screen negative -Continue to monitor with daily labs Chronic hypertension -Holding blood pressure medications Atrial fibrillation on anticoagulation with warfarin -Patient's INR is elevated at 2.56 -Patient to receive 5 mg vitamin K to bring INR to therapeutic level so he can undergo EGD in the morning Congestive heart failure -Echocardiogram done 09/07/16 demonstrating EF of 20-25% -Before meals echo report for full details COPD -Patient utilizes home oxygen, 2 L at night we will continue this here in the hospital -Patient remained stable on room air during the day at 98% Alzheimer's dementia - continue rivastigmine patch diet: NPO for now dvt ppx: systemic AC, INR in tx range Resuscitation Status: DNR/DNI:Do Not Resuscitate/Intubate Attending Statement The patient was seen and examined together with Dr. Gonsalez on 09/08/2016 and I agree with the history, exam and plan as outlined in the note above. Yesy Gonsalez DO Sep 08, 2016 18:10 Arturo De Santiago MD Sep 09, 2016 12:03
[2016-09-08] MEDS: RIVASTIGMINE TOPICAL SCH (18:21)
--- NOTE | 2016-09-08 19:16 | NUR ---
Lunch Pt only took a few bites of mashed potatoes at lunch before stating "it isn't going down well, I'm done". Pt declined to eat dinner.
[2016-09-08 20:05] VITALS: BP 123/80; PULSE 60; RESP 20; O2SAT 97
--- NOTE | 2016-09-08 22:49 | PROG NOTE ---
[address] [address] PROGRESS NOTE PATIENT: DANNY CLAIRE : 1930 MR#: [id number] ADMIT: 09/06/2016 JOB ID: [id number] DATE: 09/08/2016 SUBJECTIVE: The patient continues to experience dysphagia to anything substantial when it comes to solids. He was even struggling with some ice cream today. INR has come down to 2.56. I spoke with the patient's at length in regards the rationale for upper endoscopy. She ultimately understands the rationale to pursue a diagnostic procedure to know with certainty what is responsible for his current presentation. I explained that based on the imaging to date I am quite concerned about the prospect of a malignancy at the GE junction. That said, there is a slight possibility that he has a benign stricture in a significant meat bolus impaction. The patient's wishes to think about things overnight and reviewed the barium images tomorrow. OBJECTIVE: Vital signs are stable. The patient is in no distress. LABORATORY: INR 2.56. Platelets 227. Creatinine 1.55. ASSESSMENT AND RECOMMENDATIONS: This is an 85-year-old male with progressive dysphagia and abnormal imaging concerning for malignancy at the distal esophagus. EGD with anesthesia is indicated to confirm the diagnosis and in essence exclude the slight possibility that all of this is a benign condition. For biopsy purposes, it would be ideal if the INR is closer to 1.5 tomorrow when we proceed with endoscopy if consent is granted. The patient should therefore be n.p.o. after midnight.
[2016-09-09] VITALS (7 sets, daily range): BP systolic 111–142; BP diastolic 74–91; PULSE 53–92; RESP 14–20; O2SAT 92–94
[2016-09-09 03:59] LABS: BASOPHILS % (AUTO) 0.6 % (0-3); EOSINOPHILS % (AUTO) 1.3 % (0-5); MONOCYTES % (AUTO) 16.6 % (4-12); Mean Corpuscular Hemoglobin 28.4 pg (27.0-35.0); Mean Corpuscular Volume 87.6 fL (81-100); NEUTROPHILS % (AUTO) 65.6 % (40-74); Platelet Count 207 bil/L (150-400)
[2016-09-09] MEDS ORDERED: Phytonadione (Adult) 5 MG in 0.9% Sodium Chloride-Pha MIX 50 ML IV SCH (04:00)
[2016-09-09 04:15] LABS: INR 1.29 ratio
[2016-09-09] MEDS: Piperacillin-Tazo 3.375 Gm Inj 3.375 GM in Dextrose 5% Minibag Plus 50 ML IV SCH ×2 (05:27→18:09)
[2016-09-09] MEDS: Azithromycin Inj 500 MG in Dextrose 5% w/Vial Mate 250 ML IV SCH (07:37)
[2016-09-09] MEDS: Heparin 5,000 Unit/mL Inj SUBQ SCH ×2 (08:32→22:44)
--- NOTE | 2016-09-09 09:01 | NUR ---
MBSS completed on 09/07/16 revealed severe pharyngeal and esophageal dysphagia. Pt should be strict NPO at this time. Please see MBSS report from 09/07/[address] Iyer notified on 09/07/16 and nursing re-notified on 09/09/16.
[2016-09-09] MEDS: Dextrose 5% 0.45% NaCl 1,000 ML IV SCH ×3 (10:35→22:58)
[2016-09-09] MEDS: HYDROmorphone 1 mg/mL Inj IVPUSH PRN (13:39)
--- NOTE | 2016-09-09 13:50 | NUR ---
Off floor Pt is off floor for EGD.
[2016-09-09] MEDS ORDERED: Propofol 10,000 mCg/mL 20 mL Inj ONE (14:20)
[2016-09-09] MEDS ORDERED: Lactated Ringer's 500 ML IV ONE (14:25)
[2016-09-09] MEDS ORDERED: Lactated Ringer's 1,000 ML IV SCH (14:27)
--- NOTE | 2016-09-09 14:27 | PCM.HPANE ---
Patient Data Date of Service: Sep 09, 2016 (4022) Surgeon Admitting Provider:Rylee Stuart MD Attending Provider:Rylee Stuart MD Primary Care Physician:Doroteo Cooper MD Other Provider: Reason for Visit Fuentes,Dysphagia,Failure To Thrive Ht/WT & BMI Height (Feet): 5 Height (Inches): 9.00 Weight (Kilograms): 64.800 Body Mass Index 21.00 Allergies Coded Allergies: Sulfa (Sulfonamide Antibiotics) (Verified Allergy, Unknown, 02/03/14) aspirin (Verified Allergy, Unknown, 02/03/14) ibuprofen (Verified Allergy, Unknown, 06/15/12) yellow dye (Verified Allergy, Unknown, 02/03/14) Past Anesthesia History Anesthesia History: Denies:: Anesthesia Reactions Diabetes History Hx Diabetes?: No (BS 95) Current Bedside Blood Glucose: 95 MRSA MRSA: No Medications Blood Thinner: Coumadin (INR down 1.29) Last Dose Blood Thinner: Sep 06, 2016 Reported Medications Fluticasone/Salmeterol (Advair 250-50 Diskus)60 Puff/Inh Disk1 Puff IH BID #1 DISK Ref 0 09/07/16 Warfarin Sodium 1 Mg Tablet1 Mg PO DAILY 30 Days Ref 0 Monday, Monday, Monday09/07/16 Fluticasone Propionate 50 Mcg/Actuation [place].susp2 Sprays NASAL BID 09/07/16 Calcium Carbonate/Vitamin D3 (Calcium 500 mg Chewable Tablet)1 Each Tab.chew1 Each PO DAILY 09/07/16 Alendronate Oral Soln 70 Mg/75 Ml Zpdlygvy80 Mg PO WEEKLY Ref 0 09/07/16 Omeprazole Magnesium (Prilosec Otc)20 Mg Tablet.dr20 Mg PO DAILY #1 PKG Ref 0 09/06/16 Furosemide 20 Mg Tab20 Mg PO Q2DAY #90 09/06/16 Memantine HCl (Namenda-XR)28 Mg Cap.spr.2428 Mg PO DAILY #90 09/06/16 Isosorbide MN ER 30 Mg Tab.er.61e90-90 Mg PO DAILY PRN For Chest Pain #90 09/06/16 Rivastigmine 13.3 Mg/24 Hour Patch.td242 Patch TRANSDERM DAILY #180 09/06/16 Warfarin Sodium 2 Mg Tablet2 Mg PO DAILY Monday, Monday, , Monday09/06/16 Atorvastatin Calcium 10 Mg Ofilyb73 Mg PO HS 09/06/16 Amiodarone 100 Mg Cyqdpt284 Mg PO DAILY 09/06/16 [oxygen] No Conflict Check2 L Na Hs 02/03/14 Quetiapine Fumarate (Seroquel)100 Mg Qatyzs828 Mg PO HS Ref 0 02/03/14 Fluticasone/Salmeterol (Advair 250-50 Diskus)60 Puff/Inh Disk1 Puff IH DAILY #1 DISK Ref 0 02/03/14 Montelukast (Singulair)10 Mg Mwahct96 Mg PO HS 30 Days Ref 0 02/03/14 Discontinued Reported Medications Albuterol Sulfate (Ventolin HFA Inhaler)200 Puff/18 Gm Inhaler2 Puff INH Q4 PRN For Wheezing #1 INHALER Ref 0 09/07/16 Albuterol HFA (Proair HFA)8.5 Gm Hfa.aer.ad2 Puffs INHALATION Q4H #1 INHALER 09/06/16 Cetirizine HCl (Zyrtec)10 Mg Ycouhdr93 Mg PO 09/06/16 Alendronate/Vitamin D3 1 Each Tablet1 Tab PO WEEKLY #AD on saturdays09/06/16 Warfarin Sodium 2 Mg Tablet1 Mg PO DAILY 30 Days Ref 0 09/06/16 Mometasone Furoate (Nasonex)17 Gm [place].pump1 [place] NS BID #1 PKG Ref 0 02/03/14 Quetiapine Fumarate (Seroquel)200 Mg Ytoumj818 Mg PO QAM #30 TABLET Ref 0 02/03/14 Omeprazole Magnesium (Omeprazole)20 Mg Capsule.dr20 Mg PO DAILY 30 Days Ref 0 02/03/14 Albuterol HFA 8.5 Gm Hfa.aer.ad2 Puff IH Q4 PRN For Shortness of Breath #1 INHALER Ref 0 02/03/14 [exelon 13.3mg patch] No Conflict Check2 Pat TOPICAL DAILY 02/03/14 Ca Carbonate/Vitamin D3/Vit K (Citracal Soft Chew)1 Each Tab.chew1 Each PO DAILY 02/03/14 Discontinued Scripts [Isosorbide Mononitrate] (Imdur-ER)30 MG TABLET.ER No Conflict Check30 Mg PO 0730 #30 Ref 1 Prov:Hoeft, Leif F MD 02/07/14 Carvedilol (Coreg)3.125 Mg Tablet6.25 Mg PO BID #120 TABLET Ref 1 Prov:Leif Durham MD 02/07/14 Atorvastatin (Lipitor)20 Mg Umx[place]uk17 Mg PO HS #30 TABLET Ref 1 Prov:Leif Durham MD 02/07/14 Amiodarone (Pacerone)200 Mg Ivczci475 Mg PO BID #120 TABLET Ref 1 Prov:Leif Durham MD 02/07/14 Warfarin Sodium (Coumadin)2 Mg Tablet2 Mg PO DAILY@17 #30 TABLET Ref 1 Prov:Leif Durham MD 02/07/14 History History of ENT Problems?: No HEENT History: Positive for:: Dysphagia Hearing Problem (has working aid in Right ear, 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: Yes Neurological History: Positive for:: Alzheimer's Disease CVA Dementia Denies:: Dizziness Headaches Parkinson's Disease Seizures Hx of GI Problems?: Yes (dysphagia) Gastrointestinal History: Denies:: Diverticulitis Gastroesphageal Reflux Gastrointestinal Bleeding Heartburn Hepatitis Hiatal Hernia Rectal Bleeding Hx Musculoskeletal Problems?: Yes Musculoskeletal History: Denies:: Back Injury Joint Replacement Musculoskeletal Trauma Hx of Psycho/Social Problems?: Yes Hx Surgeries?: Yes (hernia, appendectomy, tonsillectomy) Hx Any Other Health Problems?: Yes Other History: Positive for:: Hospitalization Denies:: Cancer Endocrine Disease Thyroid Disease History Blood Transfusions: Denies:: Blood Transfuse Reaction Blood Transfusions Hx Diabetes: NoBedside Blood Glucose: 95 Hx Alcohol Use: NoHx Substance Use: No Smoking Status: Former Smoker Stop/Bang Treated for Sleep Apnea?: No Do You Have a CPAP Machine?: No S-Snoring: Do You Snore Loudly: Yes T-Tired: feel tired, fatigued: No O-Obsered: Observed not breath: No P-Blood Pressure: treated: No B- Body Mass Index > 35 kg/m2: No A- Age over 50: Yes N- Neck Large Circumference: No G- Gender Male: Yes ANNETTE Total Score: 3 ANNETTE Risk Assessment: Low Risk, <3 Yes Risk Assessment Category Category 1A: Patient has history of documented sleep apnea, and HAS NOT received any narcotic, sedative or anesthesia administration during this stay. Category 1B: Patient has history of documented sleep apnea, and HAS received any narcotic , sedative or anesthesia administration during this stay Category 2: Patient has SUSPECTED Obstructive Sleep Apnea, and HAS received any narcotic , sedative or anesthesia administration during this stay. Category 3: Patient has SUSPECTED Obstructive Sleep Apnea and HAS NOT received narcotic, sedative or anesthesia administration during this stay. Category 4: Outpatient in Procedural Areas with known sleep apnea or who screen positive for High Risk via the STOP/BANG questionnaire. Exam Exam Vital Signs Vital Signs Date Time Temp Pulse Resp B/P Pulse Ox O2 Delivery O2 Flow Rate FiO2 09/09/16 14:10 36.9 53 16 125/74 92 Room Air 09/09/16 11:28 37.0 66 20 132/83 94 Room Air General Appearance: Alert, Cooperative HEENT/AIRWAY: MP 2, Mouth Opening (>3fb) Lungs: Clear to Auscultation Heart: Exam Unremarkable Meds/Labs/Diagnostics Admission Meds Current Medications Phytonadione/ Dextrose/Water (Vitamin K (Adult)/[facility] To Mix) 50.5 ml @ 101 mls/hr ONCE ONCE IV Last administered on 09/08/16t 15:21; Start 09/08/16 at 14:25; Stop 09/08/16 at 14:54; Status DC Bedside Blood Glucose: 95 Labs Test 09/06/16 00:12 09/06/16 15:07 09/07/16 03:15 09/08/16 05:21 Urine Color Yellow (YELLOW) Urine Appearance Clear (CLEAR,HAZY) Urine pH 7.5 (5.0-8.0) Urine Specific [place] 1.015 (1.003-1.035) Urine Protein Negativemg/dL (NEG,TRACE) Urine Glucose (UA) Negativemg/dL (NEGATIVE) Urine Ketones Negativemg/dL (NEGATIVE) Urine Occult Blood Negative (NEGATIVE) Urine Nitrite Negative (NEGATIVE) Urine Bilirubin Negative (NEGATIVE) Urine Urobilinogen Normalmg/dL (NORMAL) Urine Leukocyte Esterase Negative (NEGATIVE) Urine RBC 0-2/hpf (0-2) Urine WBC 0-5/hpf (0-5) Urine Epithelial Cells Occasional/hpf (NONE-MOD) Urine Crystals None seen (NONE SEEN) Urine Bacteria None/hpf (NONE-FEW) Urine Hyaline Casts None/lpf (NONE) Urine Granular Casts None seen (NONE SEEN) Urine Waxy Casts None seen (NONE SEEN) Urine Red Blood Cell Casts None seen (NONE SEEN) Urine White Blood Cell Casts None seen (NONE SEEN) Urine Mucus Present (None Seen) Urine Trichomonas None seen (NONE SEEN) Urine Yeast None (NONE SEEN) Urinalysis Comment None Urine Culture Reflexed Not indicated Urine Legionella pneumophilia Ag Negative (Negative) Lactic Acid Level 1.3mmol/L (0.4-2.0) Hold Alvarez Top Tube Received (Received) Troponin T 0.010ug/L (0.0-0.011) Phosphorus Level 2.9mg/dL (2.5-4.9) Magnesium Level 1.9mg/dL (1.6-2.6) Procalcitonin 0.33ng/mL (0.00-0.08) Test 09/09/16 03:50 White Blood Count 7.0th/mm3 (3.8-10.1) Red Blood Count 4.68mil/mm3 (4.40-5.80) Hemoglobin 13.3g/dL (13.8-17.2) Hematocrit 41.0% (41.0-50.0) Mean Corpuscular Volume 87.6fL (81-100) Mean Corpuscular Hemoglobin 28.4pg (27.0-35.0) Mean Corpuscular Hemoglobin Concent 32.4% (32.0-37.0) Red Cell Distribution Width 13.7% (12.3-15.4) Platelet Count 207bil/L (150-400) Neutrophils (%) (Auto) 65.6% (40-74) Lymphocytes (%) (Auto) 14.2% (14-46) Monocytes (%) (Auto) 16.6% (4-12) Eosinophils (%) (Auto) 1.3% (0-5) Basophils (%) (Auto) 0.6% (0-3) Prothrombin Time 13.9sec (8.1-12.5) Prothromb Time International Ratio 1.29ratio Sodium Level 139mEq/L (134-144) Potassium Level 4.2mEq/L (3.5-5.2) Chloride Level 104mEq/L (97-108) Carbon Dioxide Level 24mmol/L (18-29) Blood Urea Nitrogen 15mg/dL (8-27) Creatinine 1.71mg/dL (0.76-1.27) Estimat Glomerular Filtration Rate 41mL/min (>59) Glucose Level 109mg/dL (60-99) Calcium Level 7.8mg/dL (8.5-10.1) Total Bilirubin 0.8mg/dL (0.0-1.2) Aspartate Amino Transf (AST/SGOT) 95U/L (0-50) Alanine Aminotransferase (ALT/SGPT) 46U/L (0-44) Alkaline Phosphatase 381U/L (25-160) Total Protein 5.1g/dL (6.4-8.4) Albumin 2.8g/dL (3.4-5.0) Plan Impression Patient chart reviewed, patient interviewed and anesthestic plan with risks, benefits, and alternatives discussed, and informed consent obtained. NPO Status: >8hrs ASA Physical Status: ASA3 Severe Disease Anesthetic Plan: GA Bene/Risks/Altern/Consents: Yes HP Complete Prior to Induction: Yes Og Glass MD Sep 09, 2016 14:27
[2016-09-09] MEDS ORDERED: MetoCLOpramide 5 mg/mL 2 mL Inj IVPUSH PRN (14:30)
[2016-09-09] MEDS ORDERED: Ondansetron 2 mg/mL 2 mL Inj IVPUSH PRN (14:30)
--- NOTE | 2016-09-09 15:07 | PCM.ANEP1 ---
Post Anesthesia Phase 1 PACU Phase 1 Assessment Date of Service: Sep 09, 2016 (5653) Vital Signs 111/78, 94% ra, 10, 83 Vital Signs Date Time Temp Pulse Resp B/P Pulse Ox O2 Delivery O2 Flow Rate FiO2 09/09/16 14:10 36.9 53 16 125/74 92 Room Air 09/09/16 11:28 37.0 66 20 132/83 94 Room Air Anesthetic Administered: GA, MAC Level of Alertness: Awake, talking LINTON's with Equal Strength: Yes Pain: No Pain Scale Score: 5 Nausea or Vomiting: No Oxygen Delivery: Room Air Lungs: Clear to Auscultation Dermatome Level: Full Sensation Summary EASY SEDATION Og Glass MD Sep 09, 2016 15:06
--- NOTE | 2016-09-09 15:07 | PCM.ANEP2 ---
Post Anesthesia Evaluation ASA/CMS Post Anesthesia VS in Patient's Normal Range?: Yes Resp Stable; Airway Patent?: Yes CV Function & Hydration Stable: Yes Mental Status Recovered?: Yes Pain control Satisfactory?: Yes N/V Control Satisfactory?: Yes Og Glass MD Sep 09, 2016 15:07
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
--- NOTE | 2016-09-09 15:26 | PCM.CONPHA ---
Subjective Date of Service: Sep 09, 2016 Atrial fibrillation Reason for Pharmacy Consult: Anticoagulation Management Objective Vital Signs Date Time Temp Pulse Resp B/P Pulse Ox O2 Delivery O2 Flow Rate FiO2 09/09/16 15:15 89 14 142/78 93 Room Air 09/09/16 15:06 36.4 91 16 111/78 93 Room Air 09/09/16 15:06 Room Air 09/09/16 14:10 36.9 53 16 125/74 92 Room Air 09/09/16 11:28 37.0 66 20 132/83 94 Room Air 09/09/16 05:21 37.0 92 20 127/81 92 Room Air 09/08/16 20:05 36.4 60 20 123/80 97 Room Air Intake and Output 09/07/16 09/08/16 09/09/16 00:00 00:00 00:00 Intake Total 1000 ml 1966 ml 2278 ml Output Total 1650 ml 1300 ml Balance 1000 ml 316 ml 978 ml Weight (Kilograms): 64.800 Height (Feet): 5 Height (Inches): 9.00 Test 09/06/16 00:12 09/06/16 15:07 09/07/16 03:15 09/08/16 05:21 Urine Color Yellow (YELLOW) Urine Appearance Clear (CLEAR,HAZY) Urine pH 7.5 (5.0-8.0) Urine Specific [place] 1.015 (1.003-1.035) Urine Protein Negativemg/dL (NEG,TRACE) Urine Glucose (UA) Negativemg/dL (NEGATIVE) Urine Ketones Negativemg/dL (NEGATIVE) Urine Occult Blood Negative (NEGATIVE) Urine Nitrite Negative (NEGATIVE) Urine Bilirubin Negative (NEGATIVE) Urine Urobilinogen Normalmg/dL (NORMAL) Urine Leukocyte Esterase Negative (NEGATIVE) Urine RBC 0-2/hpf (0-2) Urine WBC 0-5/hpf (0-5) Urine Epithelial Cells Occasional/hpf (NONE-MOD) Urine Crystals None seen (NONE SEEN) Urine Bacteria None/hpf (NONE-FEW) Urine Hyaline Casts None/lpf (NONE) Urine Granular Casts None seen (NONE SEEN) Urine Waxy Casts None seen (NONE SEEN) Urine Red Blood Cell Casts None seen (NONE SEEN) Urine White Blood Cell Casts None seen (NONE SEEN) Urine Mucus Present (None Seen) Urine Trichomonas None seen (NONE SEEN) Urine Yeast None (NONE SEEN) Urinalysis Comment None Urine Culture Reflexed Not indicated Urine Legionella pneumophilia Ag Negative (Negative) Lactic Acid Level 1.3mmol/L (0.4-2.0) Hold Alvarez Top Tube Received (Received) Troponin T 0.010ug/L (0.0-0.011) Phosphorus Level 2.9mg/dL (2.5-4.9) Magnesium Level 1.9mg/dL (1.6-2.6) Procalcitonin 0.33ng/mL (0.00-0.08) Test 09/09/16 03:50 White Blood Count 7.0th/mm3 (3.8-10.1) Red Blood Count 4.68mil/mm3 (4.40-5.80) Hemoglobin 13.3g/dL (13.8-17.2) Hematocrit 41.0% (41.0-50.0) Mean Corpuscular Volume 87.6fL (81-100) Mean Corpuscular Hemoglobin 28.4pg (27.0-35.0) Mean Corpuscular Hemoglobin Concent 32.4% (32.0-37.0) Red Cell Distribution Width 13.7% (12.3-15.4) Platelet Count 207bil/L (150-400) Neutrophils (%) (Auto) 65.6% (40-74) Lymphocytes (%) (Auto) 14.2% (14-46) Monocytes (%) (Auto) 16.6% (4-12) Eosinophils (%) (Auto) 1.3% (0-5) Basophils (%) (Auto) 0.6% (0-3) Prothrombin Time 13.9sec (8.1-12.5) Prothromb Time International Ratio 1.29ratio Sodium Level 139mEq/L (134-144) Potassium Level 4.2mEq/L (3.5-5.2) Chloride Level 104mEq/L (97-108) Carbon Dioxide Level 24mmol/L (18-29) Blood Urea Nitrogen 15mg/dL (8-27) Creatinine 1.71mg/dL (0.76-1.27) Estimat Glomerular Filtration Rate 41mL/min (>59) Glucose Level 109mg/dL (60-99) Calcium Level 7.8mg/dL (8.5-10.1) Total Bilirubin 0.8mg/dL (0.0-1.2) Aspartate Amino Transf (AST/SGOT) 95U/L (0-50) Alanine Aminotransferase (ALT/SGPT) 46U/L (0-44) Alkaline Phosphatase 381U/L (25-160) Total Protein 5.1g/dL (6.4-8.4) Albumin 2.8g/dL (3.4-5.0) Assessment/Plan Assessment/Plan Assessment: * Patient is needing warfarin management for atrial fibrillation. * Patient's warfarin was held on 09/08/16 in anticipation of an endoscopy scheduled for this morning. * Patient's INR goal range: 2-3 * Patient's INR on 09/09/16: 1.29 * Patient's INR is low, but expected as warfarin had been held since admission. * Patient is currently NPO and per the Palliative Care note is having trouble swallowing honey thickened liquids. Plan: * Since the patient is NPO, will hold the warfarin on 09/09/16 and will reevaluate PO status tomorrow. * Will continue to follow. Hever Corona Sep 09, 2016 15:26
--- NOTE | 2016-09-09 15:30 | NUR ---
NPO status Per Dr Peña, pt can advance to milkshake consistency. However, speech therapy insisted that the pt be NPO earlier today. Unable to contact speech therapy for a reevaluation at this time. Per Dr Ramsey, pt will remain NPO until seen again by speech therapy. Per Dr Ramsey, pt can take mediations by mouth if he is able to. Addendum: 09/09/16 at 1821 by FLO JOHNSON RN Pt refuses to take warfarin at this time. Does not believe he can swallow it.
--- NOTE | 2016-09-09 17:00 | NUR ---
Output Pt has had very little urinary output this shift. Bladder scan shows 333. Pt denies need to urinate but agrees to sit on commode. Pt then voided 150mL. Pt is currently NPO but is receiving IV fluids at 100mL/hour. Hospitalist notified.
[2016-09-09] MEDS: RIVASTIGMINE TOPICAL SCH (18:10)
--- NOTE | 2016-09-10 00:19 | PCM.PNMED ---
Subjective Date of Service Sep 10, 2016 Subjective Patient was seen postprocedure and has no new complaints. Exam Vital Signs Vital Sign - Last Date Time Temp Pulse Resp B/P Pulse Ox O2 Delivery O2 Flow Rate FiO2 09/09/16 20:33 36.8 66 16 136/91 93 Room Air 09/06/16 22:25 2.00 Intake and Output 09/09/16 09/09/16 09/10/16 Cumulative From/Thru 15:00 23:00 07:00 09/06/16 15:39 - 09/09/16 21:45 Intake Total 1237 ml 7194 ml Output Total 300 ml 3600 ml Balance 937 ml 3594 ml Intake Oral 518 ml IV Total 1237 ml 6676 ml Output Urine Total 300 ml 3600 ml # Voids 2 4 # Bowel Movements 2 7 Exam General: Patient is lying comfortably supine in bed. This had a slightly elevated. He is in no apparent distress Lab and Diagnostics Result Diagram: 09/09/16 0350 09/09/16 0350 Microbiology Blood cultures are negative for 24 hours. Estefanía screen is negative Strep Pneumonia screen is negative Respiratory virus screen is negative X-Rays, CTs and MRIs PROCEDURE: X-RAY CHEST ONE VIEW, PORTABLE ([id number]) INDICATIONS: 85-year-old man with chest pain, dysrthymia. TECHNIQUE: One view of the chest was acquired. COMPARISON: [facility], , CHEST 1VW (PORTABLE), 11/19/2014, 17: 56. [facility], , CHEST 1VW (PORTABLE), 02/03/2014, 13:49. FINDINGS: Surgical changes and devices: None. Lungs and pleura: There are right basilar infiltrate and consolidation consistent with pneumonia. Calcified granulomatous in the left lung base. There is left basilar scarring. No pleural effusions or pneumothorax. Mediastinum: Mediastinal contours appear normal. Heart size is mildly increased. Bones and chest wall: No suspicious bony lesions. Overlying soft tissues appear unremarkable. IMPRESSION: Right lower lobe pneumonia. Dictated by: Cyndee Lackey M.D. on 09/06/2016 at 15:43 Approved by: Cyndee Lackey M.D. on 09/06/2016 at 15:45 Cardiac Echo Impressions Echocardiogram Report Name: DANNY CLAIRE Josedell Date: 09/07/2016 Height: 69 in Hospital Exam Location: [facility] Weight: 143 lb Gender: Male BSA: 1.8 m2 : 1930 Age: 85 yrs BP: 122/82 mmHg Reason For Study: Congestive Heart Failure Ordering Physician: Performed By: Kayleigh BillingsleyPrairie View Psychiatric HospitalIST [facility] Interpretation Summary The left ventricle is severely dilated. Left ventricular systolic function is severely reduced. The ejection fraction is estimated to be 20-25%. The anteroseptal wall appears to have the most preserved contractility but overall there is severe global hypokinesis with significant dyssynchrony. The right ventricle is normal in size and function. The right ventricular systolic pressure is estimated at 29 mmHg assuming a right atrial pressure of 3 mm Hg. The left atrium is severely dilated. Right atrial size is normal. There is moderate calcification extending into the subvalvular apparatus. There is mild to moderate mitral annular calcification. There is mild to moderate mitral regurgitation. Leaflet mobility is mild to moderately reduced. There is no hemodynamically significant valvular aortic stenosis. There is no other significant valvular heart disease. The aortic root is mildly dilated. The ascending aorta is mild-moderately enlarged. The aortic arch is mild-moderately enlarged. Assessment & Plan This is an 85-year-old male with a history of Alzheimer's CHF COPD hypertension atrial fibrillation who was brought to the emergency room by his for increasing problems with swallowing which has been progressive over the past few weeks. No evidence of any fevers chills shortness of breath or wheezing. His evaluation in the emergency room did show a right lower lobe pneumonia. I am not able to get any more history as patient is not very forthcoming or communicative and is currently not at bedside. His white count was noted to be 6.8 and his BUN was 29 creatinine 1.93 which is a little bit worse than last documented in our chart which was several years ago. He denies any chest pain. Denies any nausea or vomiting. He denies any alteration in bowel movements. Chronic dysphagia, present on admission, ongoing -Patient underwent barium swallow which demonstrated Zenker's diverticulum and distal esophageal strictures -Speech therapy recommended that the patient remain nothing by mouth until further evaluation can be performed -GI has been consulted and evaluated the patient, we appreciate their recommendations -Patient is scheduled for EGD today -Patient to remain nothing by mouth -Spoke with the patient's who is his DPOA regarding treatment options, she states she would like to go through with the EGD to find out what is causing his dysphagia, but is unsure at this time how much treatment will proceed with Acute right lower lobe pneumonia, present on admission, ongoing -Pneumonia likely secondary to aspiration in the setting of patient's dysphagia -Currently being treated with azithromycin and Zosyn -Viral panel negative -Blood cultures with no growth for the past 2 days -MRSA screen negative -Continue to monitor with daily labs Chronic hypertension -Holding blood pressure medications Atrial fibrillation on anticoagulation with warfarin -Patient's INR is elevated at 2.56 -Patient received 5 mg vitamin K to bring INR to therapeutic level so he can undergo EGD today. Will restart warfarin postprocedure Congestive heart failure -Echocardiogram done 09/07/16 demonstrating EF of 20-25% -Consider starting beta tamia, MARRY inhibitor and possibly a diuretic. COPD -Patient utilizes home oxygen, 2 L at night we will continue this here in the hospital -Patient remained stable on room air during the day at 98% Alzheimer's dementia - continue rivastigmine patch diet: NPO for now. Last speech therapy to follow after EGD procedure. Pain Evaluation: Adequate Pain Control GI Prophylaxis: Proton Pump Inhibitor VTE Prophylaxis: Sub-Q Heparin (Unfractionated), Theraputic Anticoag with Warfarin Resuscitation Status: DNR/DNI:Do Not Resuscitate/Intubate James Ramsey MD Sep 10, 2016 00:19
[2016-09-10] MEDS: HYDROmorphone 1 mg/mL Inj IVPUSH PRN ×3 (02:12→20:57)
[2016-09-10 04:32] VITALS: BP 130/92; PULSE 58; RESP 18; O2SAT 92
--- NOTE | 2016-09-10 05:12 | ENDO ---
[address] [address] ENDOSCOPY PROCEDURE PATIENT: DANNY CLAIRE : 1930 MR#: [id number] ADMIT: 09/06/2016 JOB ID: [id number] DATE OF SERVICE: 09/09/2016 PROCEDURE: Esophagoscopy with biopsy. INDICATIONS: An 85-year-old male who was admitted for severe dysphagia. Contrast imaging was concerning for an obstructing irregular lesion in the distal esophagus. Endoscopic examination is pursued. EQUIPMENT: [id number]. SEDATION: Monitored anesthesia as provided by Dr. Og Glass. COMPLICATIONS: None identified. PROCEDURE INFORMATION: After the risks and benefits were explained, written and verbal informed consent was obtained. The patient was placed into the left lateral decubitus position. Sedation was achieved as above. The scope was introduced into the mouth through the bite block, and advanced under direct visualization through the oropharynx. The Zenker diverticulum was identified and we could navigate around this into the esophagus proper. At about 33 cm from the incisors was the start of an irregular mass lesion that ultimately developed into a circumferential process and did not allow passage of the scope down through into the stomach. Attempts at doing so caused a lot of contact bleeding from the friable nature of this lesion. Three biopsies were acquired for histopathology. Ultimately, the scope was then withdrawn from the patient who seemed to tolerate the procedure quite well. FINDINGS: 1. Duodenum not seen. 2. Stomach not seen. 3. Esophagus: Mass lesion as described above. This was quite friable. I could not advance the scope down into the stomach. Biopsies were acquired. In the proximal esophagus there was a benign-appearing inlet patch at the level of the UES. 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 ENDOSCOPIC DIAGNOSIS: 1. Obstructing esophageal mass lesion. 2. Zenker's. RECOMMENDATIONS: 1. Await histopathology. 2. Milkshake consistency diet only within the confines of Speech Pathology's compensated re-strategies to avoid aspiration. 3. After speaking with the patient's , it sounds as though they are not inclined to pursue any aggressive therapies. In that context, palliative/hospice care would be recommended moving forward. 4. Although with an obstructing esophageal lesion, a palliative stent can conceivably be placed. I do not feel this would be a very good idea in the patient. He would almost certainly have severe reflux, and as a consequence this would increase his risk for aspiration and he would be confined to sleeping in the fully seated position.
--- NOTE | 2016-09-10 06:11 | NUR ---
Pain pt c/o epigastric pain x1 this shift. Dilaudid 1mg IVP. Administered 1mg Dilaudid IVP and effective with no further complaints. Pt had loose BM x2 during this shift. Bed is locked and in low position. call light within reach. will continue to monitor.
[2016-09-10 06:38] LABS: BASOPHILS % (AUTO) 0.3 % (0-3); EOSINOPHILS % (AUTO) 1.2 % (0-5); MONOCYTES % (AUTO) 17.8 % (4-12); Mean Corpuscular Hemoglobin 28.9 pg (27.0-35.0); Platelet Count 204 bil/L (150-400)
[2016-09-10] MEDS: Dextrose 5% 0.45% NaCl 1,000 ML IV SCH (06:38)
[2016-09-10] MEDS: Piperacillin-Tazo 3.375 Gm Inj 3.375 GM in Dextrose 5% Minibag Plus 50 ML IV SCH ×2 (06:39→18:45)
[2016-09-10 06:41] LABS: INR 1.09 ratio
[2016-09-10] MEDS: Pantoprazole 40 mg ER24 Tablet PO SCH (07:23)
[2016-09-10] MEDS: Azithromycin Inj 500 MG in Dextrose 5% w/Vial Mate 250 ML IV SCH (07:42)
[2016-09-10] MEDS: RIVASTIGMINE TOPICAL SCH (08:03)
[2016-09-10] MEDS: Heparin 5,000 Unit/mL Inj SUBQ SCH ×2 (09:01→20:57)
[2016-09-10] MEDS: 0.9% NaCl + KCl 20 mEq/L 1,000 ML IV SCH (10:17)
[2016-09-10 12:22] VITALS: BP 133/62; PULSE 76; O2SAT 93
--- NOTE | 2016-09-10 15:23 | NUR ---
Evaluation completed. Please go to "Notes" then click on "Assessments and Notes" (bottom left corner of screen). Then select appropriate discipline tab on top of screen.
[2016-09-10 15:27] VITALS: BP 137/81; PULSE 96; RESP 14; O2SAT 92
--- NOTE | 2016-09-10 15:31 | NUR ---
Pain Pt c/o epigastric pain after PT eval. Pt does not understand pain scale and cannot describe pain, but confirms that it is severe. Pt given Dilaudid IV. Pt then became flushed and appeared nauseous. Pt later stated, "I feel like I passed out." Pt denied nausea. VSS taken and are stable. Pt is alert and responds to verbal and physical stimuli. Confirms that pain has decreased with Dilaudid. Will continue to monitor.
[2016-09-10 17:18] VITALS: PULSE 46; RESP 18; O2SAT 93
--- NOTE | 2016-09-10 17:30 | NUR ---
Urinary retention/wishing to It was noted that the pt has had little urinary output and is refusing to use the commode. Bladder scan shows greater than 367. Pt says that he will refuse a lees/straight cath if suggested by the hospitalist. Pt stated, "I want to , the sooner the better." Refusing IV antibiotics and food/drink. Hospitalist notified. Pt's will be called. Will continue to check in with pt. Addendum: 09/10/16 at 1830 by FLO JOHNSON RN notified. encouraged frequent check-ins with the pt. inquired about a visitation from a canvas cutter. Also suggested having the pt watch tv. Pt asked again if he would speak with a canvas cutter and he refused. He will now allow this nurse to administer his antibiotics. Refuses to watch tv. When this nurse attempted to engage in more conversation, the pt looked away and would not continue to converse. Will continue to monitor.
[2016-09-10 20:35] VITALS: BP 146/92; PULSE 77; RESP 16; O2SAT 94
--- NOTE | 2016-09-10 21:31 | PCM.PNMED ---
Subjective Date of Service Sep 10, 2016 Subjective The patient has no new complaints. However, he still has a very poor appetite and does not want to eat or drink anything. Otherwise he appears very comfortable. He was reading a book when I enter the room. Exam Vital Signs Vital Sign - Last Date Time Temp Pulse Resp B/P Pulse Ox O2 Delivery O2 Flow Rate FiO2 09/10/16 17:18 46 18 93 Room Air 09/10/16 15:27 36.7 137/81 09/06/16 22:25 2.00 Intake and Output 09/09/16 09/09/16 09/10/16 Cumulative From/Thru 15:00 23:00 07:00 09/06/16 15:39 - 09/10/16 06:53 Intake Total 1237 ml 7194 ml Output Total 300 ml 425 ml 4025 ml Balance 937 ml -425 ml 3169 ml Intake Oral 518 ml IV Total 1237 ml 6676 ml Output Urine Total 300 ml 325 ml 3925 ml Urine/Stool Mix 100 ml 100 ml # Voids 2 4 # Bowel Movements 2 1 8 Exam General: Patient is lying comfortably in bed with head raised at approximately 45 reading a book. He is in no apparent distress. HEENT: Head is atraumatic and normocephalic. Eyes: Pupils are equally round and reactive to light and accommodation. Extraocular muscles are intact. Sclera are white, anicteric. Subconjunctival mucosa is pink. Ears and nose are unremarkable. Oropharynx: There is no mucosal lesions, there is no thrush, there is no pharyngitis. Neck: Is supple, there are no nodes, or masses or tenderness. Chest: Is clear to auscultation and percussion. There are no rales, rhonchi, wheezes or rubs. Heart: Rate, rhythm is regular. There is no murmur, rub or gallop. Abdomen: Good bowel sounds are present. Abdomen is soft, nontender, no organomegaly or masses were appreciated. Extremities: Are thin but symmetrical and well perfused. There is no edema, there is no cellulitis, no rash. Neurologic: There are no focal neurological deficits. Cranial nerves II through XII are intact. There are no sensory or motor deficits. Psychiatric: Patients mood is calm and shows no sign of agitation. Genital: Deferred Rectal: Deferred Lab and Diagnostics Result Diagram: 09/10/1642 09/10/1642 Microbiology Blood cultures are negative for 24 hours. Estefanía screen is negative Strep Pneumonia screen is negative Respiratory virus screen is negative X-Rays, CTs and MRIs PROCEDURE: X-RAY CHEST ONE VIEW, PORTABLE ([id number]) INDICATIONS: 85-year-old man with chest pain, dysrthymia. TECHNIQUE: One view of the chest was acquired. COMPARISON: [facility], CR, CHEST 1VW (PORTABLE), 11/19/2014, 17: 56. Located [facility], CR, CHEST 1VW (PORTABLE), 02/03/2014, 13:49. FINDINGS: Surgical changes and devices: None. Lungs and pleura: There are right basilar infiltrate and consolidation consistent with pneumonia. Calcified granulomatous in the left lung base. There is left basilar scarring. No pleural effusions or pneumothorax. Mediastinum: Mediastinal contours appear normal. Heart size is mildly increased. Bones and chest wall: No suspicious bony lesions. Overlying soft tissues appear unremarkable. IMPRESSION: Right lower lobe pneumonia. Dictated by: Cyndee Lackey M.D. on 09/06/2016 at 15:43 Approved by: Cyndee Lackey M.D. on 09/06/2016 at 15:45 Cardiac Echo Impressions Echocardiogram Report Name: DANNY CLAIRE Date: 09/07/2016 Height: 69 in Hospital Exam Location: [facility] Weight: 143 lb Gender: Male BSA: 1.8 m2 : 1930 Age: 85 yrs BP: 122/82 mmHg Reason For Study: Congestive Heart Failure Ordering Physician: Performed By: Kayleigh James HOSPITALIST [facility] Interpretation Summary The left ventricle is severely dilated. Left ventricular systolic function is severely reduced. The ejection fraction is estimated to be 20-25%. The anteroseptal wall appears to have the most preserved contractility but overall there is severe global hypokinesis with significant dyssynchrony. The right ventricle is normal in size and function. The right ventricular systolic pressure is estimated at 29 mmHg assuming a right atrial pressure of 3 mm Hg. The left atrium is severely dilated. Right atrial size is normal. There is moderate calcification extending into the subvalvular apparatus. There is mild to moderate mitral annular calcification. There is mild to moderate mitral regurgitation. Leaflet mobility is mild to moderately reduced. There is no hemodynamically significant valvular aortic stenosis. There is no other significant valvular heart disease. The aortic root is mildly dilated. The ascending aorta is mild-moderately enlarged. The aortic arch is mild-moderately enlarged. Assessment & Plan This is an 85-year-old male with a history of Alzheimer's CHF COPD hypertension atrial fibrillation who was brought to the emergency room by his for increasing problems with swallowing which has been progressive over the past few weeks. No evidence of any fevers chills shortness of breath or wheezing. His evaluation in the emergency room did show a right lower lobe pneumonia. I am not able to get any more history as patient is not very forthcoming or communicative and is currently not at bedside. His white count was noted to be 6.8 and his BUN was 29 creatinine 1.93 which is a little bit worse than last documented in our chart which was several years ago. He denies any chest pain. Denies any nausea or vomiting. He denies any alteration in bowel movements. Chronic dysphagia, present on admission, ongoing -Patient underwent barium swallow which demonstrated Zenker's diverticulum and distal esophageal strictures -Speech therapy recommended that the patient remain nothing by mouth until further evaluation can be performed -GI has been consulted and evaluated the patient, we appreciate their recommendations -Patient went for EGD yesterday and the findings were as follows: FINDINGS: 1. Duodenum not seen. 2. Stomach not seen. 3. Esophagus: Mass lesion as described above. This was quite friable. I could not advance the scope down into the stomach. Biopsies were acquired. In the proximal esophagus there was a benign-appearing inlet patch at the level of the UES. 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 ENDOSCOPIC DIAGNOSIS: 1. Obstructing esophageal mass lesion. 2. Zenker's. Dr. Peña's recommendations are as follows: RECOMMENDATIONS: 1. Await histopathology. 2. Milkshake consistency diet only within the confines of Speech Pathology's compensated re-strategies to avoid aspiration. 3. After speaking with the patient's , it sounds as though they are not inclined to pursue any aggressive therapies. In that context, palliative/hospice care would be recommended moving forward. 4. Although with an obstructing esophageal lesion, a palliative stent can conceivably be placed. I do not feel this would be a very good idea in the patient. He would almost certainly have severe reflux, and as a consequence this would increase his risk for aspiration and he would be confined to sleeping in the fully seated position. Acute right lower lobe pneumonia, present on admission, ongoing -Pneumonia likely secondary to aspiration in the setting of patient's dysphagia -Currently being treated with azithromycin and Zosyn -Viral panel negative -Blood cultures with no growth for the past 2 days -MRSA screen negative -Continue to monitor with daily labs Chronic hypertension -Holding blood pressure medications Atrial fibrillation on anticoagulation with warfarin -Patient's INR is elevated at 2.56 -Patient received 5 mg vitamin K to bring INR to therapeutic level so he can undergo EGD today. Due to the friable nature of the esophageal mass lesion Dr. Leija does not recommend restarting warfarin at this time. Congestive heart failure -Echocardiogram done 09/07/16 demonstrating EF of 20-25% -Consider starting beta tamia, MARRY inhibitor and possibly a diuretic. COPD -Patient utilizes home oxygen, 2 L at night we will continue this here in the hospital -Patient remained stable on room air during the day at 98% Alzheimer's dementia - continue rivastigmine patch diet: As per GIs recommendations above and per speech therapy. Disposition: Given Dr. Leija findings, we will need to consult palliative care and likely hospice. If hospice is available on Monday, will consult them on Monday, if not we will consult palliative care and/or hospice or both on Monday. Dr. Leif Franco to follow in a.m. Pain Evaluation: Adequate Pain Control GI Prophylaxis: Proton Pump Inhibitor VTE Prophylaxis: Sub-Q Heparin (Unfractionated), Theraputic Anticoag with Warfarin Resuscitation Status: DNR/DNI:Do Not Resuscitate/Intubate James Ramsey MD Sep 10, 2016 21:31
[2016-09-11] MEDS: HYDROmorphone 1 mg/mL Inj IVPUSH PRN ×4 (03:38→21:17)
[2016-09-11 04:35] VITALS: BP 146/66; PULSE 71; RESP 16; O2SAT 92
[2016-09-11] MEDS: Piperacillin-Tazo 3.375 Gm Inj 3.375 GM in Dextrose 5% Minibag Plus 50 ML IV SCH ×2 (05:30→17:05)
--- NOTE | 2016-09-11 06:04 | NUR ---
pain/urine retention pt c/o epigastric pain x2 this shift. Administered 1mg Dilaudid IVP and effective with no further complaints. Pt void only 100 until 0300. bladder scan showed 381ml. one hour later pt void 15o ml. Bed is locked and in low position. call light within reach. will continue to monitor.
[2016-09-11 07:00] LABS: BASOPHILS % (AUTO) 0.3 % (0-3); EOSINOPHILS % (AUTO) 0.1 % (0-5); Mean Corpuscular Hemoglobin 28.7 pg (27.0-35.0); Mean Corpuscular Volume 87.7 fL (81-100); NEUTROPHILS % (AUTO) 78.5 % (40-74); Platelet Count 224 bil/L (150-400)
[2016-09-11 07:14] LABS: INR 1.09 ratio
[2016-09-11 08:30] VITALS: BP 134/84; PULSE 86; RESP 22; O2SAT 92
[2016-09-11] MEDS: Heparin 5,000 Unit/mL Inj SUBQ SCH ×2 (08:43→21:20)
[2016-09-11] MEDS: Pantoprazole 40 mg ER24 Tablet PO SCH (08:43)
[2016-09-11] MEDS: RIVASTIGMINE TOPICAL SCH (08:43)
[2016-09-11] MEDS: Azithromycin Inj 500 MG in Dextrose 5% w/Vial Mate 250 ML IV SCH (08:44)
[2016-09-11 09:00] VITALS: PULSE 95; RESP 18; O2SAT 95
--- NOTE | 2016-09-11 13:56 | NUR ---
LEONARD verbal consent with pt Regina via phone call. PARVIZ Mc
--- NOTE | 2016-09-11 14:03 | NUR ---
Family concern/Activity/Nutrition Spoke with patient's this morning regarding patient's progress for the day. wanted to be updated at least once a day or as needed when she's not able to come due to the distance of her driving. Patient was cooperative during care and able to transfer with a steady gait from bed to the commode during toileting. Pain managed with Dialudid IV with positive effect. Food and fluid encouraged but no appetite, he states it was to painful to eat. Hospitalist made aware during rounds. PT and attempted to work with patient but not successful at this time. Will continue to monitor, awaiting disposition for Palliative or Hospice care.
[2016-09-11] MEDS: 0.9% NaCl + KCl 20 mEq/L 1,000 ML IV SCH ×2 (15:13)
[2016-09-11 15:16] VITALS: BP 115/74; PULSE 64; RESP 20; O2SAT 95
--- NOTE | 2016-09-11 15:33 | NUR ---
Social Work Note: Continued Discharge Planning Data& Assessment: SW spoke with pt via phone call to discuss discharge planning, SW role explained and SW phone number provided. Pt explained that she comes from [place] and the commute to the hospital is too far for her to come to the hospital daily. Per RN in morning rounds, pt was interested in Palliative care consult again or Hospice. Pt explained she does not know the biopsy results yet and therefore cannot make any informed decisions regarding pt care plan. Pt declined hospice informational visit, explaining " I have been through this many times before and have a big folder of information here with me, why would I need a informational visit for them to repeat it to me." Pt explained that he has medically improved in the past when she was told his prognosis was poor and feels like the doctors are "only looking at one part of this and not thinking of any other options or ideas." Pt explained that she would like more clarification from the doctors regarding his biopsy results when they are available prior to making any other decisions. Pt has hope based on previous recoveries in the past from pt. Pt did reflect on the fact that he has not been able to eat in the past week and that he had told the nurse that he wanted to . When SW asked how she felt when the nurse communicated that to her, pt became tearful and explained that it was scary for her and she has never heard him talk like that before. Pt explained that she relies on the nurses for updates and is unable to see changes in pt herself on a daily basis. Psychosocial support provided. Pt states she would be open to having another conversation with Palliative care MD and also requested that a [place] see pt, and perhaps speak to her as well if the [facility] had time as they have not had a chance to connect with any [employer] in this community since moving here from [place]. SW left a message for [facility] for referral. Pt denies any other needs at this time. SW to continue to follow pt and continue to engage pt in discharge planning conversations. Plan: Anticipated discharge to SNF vs. home with hospice pending biopsy results. SW to continue to follow pt and continue to engage pt in discharge planning conversations. Pt denies any other needs at this time. SW to continue to follow. PARVIZ Mc
--- NOTE | 2016-09-11 16:04 | PCM.PNMED ---
Subjective Date of Service Sep 11, 2016 Subjective Patient seen and examined at bedside. Medical record reviewed. How unable to interview him accurately due to advanced dementia He underwent EGD yesterday which showed mild lesion compatible with malignancy. Exam Vital Signs Vital Sign - Last Date Time Temp Pulse Resp B/P Pulse Ox O2 Delivery O2 Flow Rate FiO2 09/11/16 15:16 37.1 64 20 115/74 95 Room Air 09/06/16 22:25 2.00 Intake and Output 09/10/16 09/10/16 09/11/16 Cumulative From/Thru 15:00 23:00 07:00 09/06/16 15:39 - 09/11/16 06:09 Intake Total 1129 ml 898 ml 9221 ml Output Total 475 ml 250 ml 4750 ml Balance 654 ml 648 ml 4471 ml Intake Oral 518 ml IV Total 1129 ml 898 ml 8703 ml Output Urine Total 475 ml 250 ml 4650 ml Urine/Stool Mix 100 ml # Voids 4 # Bowel Movements 2 1 11 Exam Elderly male in bed comfortably. Chronically ill-appearing Neck: Supple, no JVD Chest: Normal respiratory effort Heart: S1-S2 irregular rate and rhythm no gallop no murmur Lung: Clear bilaterally: The crackles no wheezing Abdomen: Soft nontender nondistended Extremities: No edema tenderness, no cyanosis IVs and Medications Medications Reviewed: Medications were reviewed in detail Lab and Diagnostics Result Diagram: 09/11/16 0630 09/11/16 0630 Microbiology Blood cultures are negative for 24 hours. Estefanía screen is negative Strep Pneumonia screen is negative Respiratory virus screen is negative X-Rays, CTs and MRIs PROCEDURE: X-RAY CHEST ONE VIEW, PORTABLE ([id number]) INDICATIONS: 85-year-old man with chest pain, dysrthymia. TECHNIQUE: One view of the chest was acquired. COMPARISON: [facility], , CHEST 1VW (PORTABLE), 11/19/2014, 17: 56. [facility], , CHEST 1VW (PORTABLE), 02/03/2014, 13:49. FINDINGS: Surgical changes and devices: None. Lungs and pleura: There are right basilar infiltrate and consolidation consistent with pneumonia. Calcified granulomatous in the left lung base. There is left basilar scarring. No pleural effusions or pneumothorax. Mediastinum: Mediastinal contours appear normal. Heart size is mildly increased. Bones and chest wall: No suspicious bony lesions. Overlying soft tissues appear unremarkable. IMPRESSION: Right lower lobe pneumonia. Dictated by: Cyndee Lackey M.D. on 09/06/2016 at 15:43 Approved by: Cyndee Lackey M.D. on 09/06/2016 at 15:45 Cardiac Echo Impressions Echocardiogram Report Name: DANNY CLAIRE Date: 09/07/2016 Height: 69 in Hospital Exam Location: [facility] Weight: 143 lb Gender: Male BSA: 1.8 m2 : 1930 Age: 85 yrs BP: 122/82 mmHg Reason For Study: Congestive Heart Failure Ordering Physician: Performed By: [facility] Interpretation Summary The left ventricle is severely dilated. Left ventricular systolic function is severely reduced. The ejection fraction is estimated to be 20-25%. The anteroseptal wall appears to have the most preserved contractility but overall there is severe global hypokinesis with significant dyssynchrony. The right ventricle is normal in size and function. The right ventricular systolic pressure is estimated at 29 mmHg assuming a right atrial pressure of 3 mm Hg. The left atrium is severely dilated. Right atrial size is normal. There is moderate calcification extending into the subvalvular apparatus. There is mild to moderate mitral annular calcification. There is mild to moderate mitral regurgitation. Leaflet mobility is mild to moderately reduced. There is no hemodynamically significant valvular aortic stenosis. There is no other significant valvular heart disease. The aortic root is mildly dilated. The ascending aorta is mild-moderately enlarged. The aortic arch is mild-moderately enlarged. Assessment & Plan This is an 85-year-old male with a history of Alzheimer's CHF COPD hypertension atrial fibrillation who was brought to the emergency room by his for increasing problems with swallowing which has been progressive over the past few weeks. No evidence of any fevers chills shortness of breath or wheezing. His evaluation in the emergency room did show a right lower lobe pneumonia. I am not able to get any more history as patient is not very forthcoming or communicative and is currently not at bedside. His white count was noted to be 6.8 and his BUN was 29 creatinine 1.93 which is a little bit worse than last documented in our chart which was several years ago. He denies any chest pain. Denies any nausea or vomiting. He denies any alteration in bowel movements. Chronic dysphagia, present on admission, ongoing : Patient is status post EGD scope unable to be advanced due to mass lesion suspicious for malignancy and Zenker's diverticulum. Biopsy taken. Follow-up pathology report but patient and family are not looking for aggressive treatment Patient is on Milkshake consistency diet . He was seen by speech and swallow ENDOSCOPIC DIAGNOSIS: 1. Obstructing esophageal mass lesion. 2. Zenker's. Acute right lower lobe pneumonia, present on admission, ongoing -Pneumonia likely secondary to aspiration in the setting of patient's dysphagia -Currently being treated with azithromycin and Zosyn -Viral panel negative -Blood cultures with no growth day 3 -MRSA screen negative Chronic hypertension Atrial fibrillation on anticoagulation with warfarin : Warfarin was on hold for EGD Congestive heart failure -Echocardiogram done 09/07/16 demonstrating EF of 20-25% -Consider starting beta tamia, MARRY inhibitor, fluid restriction COPD -Patient utilizes home oxygen, 2 L at night we will continue this here in the hospital -Patient remained stable on room air during the day at 98% Alzheimer's dementia - continue rivastigmine patch Patient is stable. EGD finding highly suspicious for malignancy. Pathology report is pending. Palliative care and hospice care consulted as patient and his family are not looking towards aggressive treatment. GI Prophylaxis: Proton Pump Inhibitor VTE Prophylaxis: Sub-Q Heparin (Unfractionated), Theraputic Anticoag with Warfarin Resuscitation Status: DNR/DNI:Do Not Resuscitate/Intubate Time spent 35 minutes Leif Franco MD Sep 11, 2016 16:04
[2016-09-11 20:40] VITALS: BP 116/65; PULSE 67; RESP 16; O2SAT 90
[2016-09-12 00:40] VITALS: BP 122/68; PULSE 67; RESP 18; O2SAT 91
[2016-09-12] MEDS: HYDROmorphone 1 mg/mL Inj IVPUSH PRN ×5 (02:13→20:21)
[2016-09-12 04:40] VITALS: BP 115/65; PULSE 64; RESP 16; O2SAT 91
[2016-09-12] MEDS: 0.9% NaCl + KCl 20 mEq/L 1,000 ML IV SCH ×2 (04:54→20:21)
[2016-09-12] MEDS: Piperacillin-Tazo 3.375 Gm Inj 3.375 GM in Dextrose 5% Minibag Plus 50 ML IV SCH ×2 (05:27→18:17)
[2016-09-12 07:08] LABS: INR 1.18 ratio
[2016-09-12] MEDS: Pantoprazole 40 mg ER24 Tablet PO SCH (07:30)
[2016-09-12] MEDS: RIVASTIGMINE TOPICAL SCH (08:26)
[2016-09-12] MEDS: Heparin 5,000 Unit/mL Inj SUBQ SCH ×2 (08:26→20:21)
[2016-09-12 08:30] VITALS: BP 138/76; PULSE 78; RESP 18; O2SAT 95
[2016-09-12] MEDS: Azithromycin Inj 500 MG in Dextrose 5% w/Vial Mate 250 ML IV SCH (09:22)
[2016-09-12] MEDS: Pantoprazole 4 mg/mL 10 mL Inj IVPUSH SCH (10:49)
--- NOTE | 2016-09-12 14:02 | PATH ---
SURGICAL PATHOLOGY Attending Physician:Juan Manuel Hurtado CASE STATUS: Signed Out PATIENT NAME: DANNY CLAIRE PID: [id number] : 1930 DATE COLLECTED:09/09/2016 21:03 SPECIMEN: Esophagus, Biopsy CLINICAL HISTORY: 1). ESOPHAGEAL MASS BIOPSY FINAL DIAGNOSIS: 1.ESOPHAGEAL MASS BIOPSY: INVASIVE SQUAMOUS CARCINOMA POORLY DIFFERENTIATED, WITH BASALOID FEATURES, PARTIALLY NECROTIC, DIFFUSELY INVOLVING ALL BIOPSY FRAGMENTS. ICD10 CODE C15.9 NOTE: As part of a routine quality control specialist, Dr. Sophia Vu has also reviewed this case and agrees with the diagnosis. GROSS DESCRIPTION: Received in formalin, labeled with the patient' s name and "esophageal mass biopsy", are three fragments of rivera, soft tissue ranging in size from less than 0.1 cm by 0.1 x 0.1 cm to 0.2 x 0.2 x 0.1 cm. All fragments are totally submitted in cassette 1A. ([id number]) MICRO DESCRIPTION: See diagnosis. ICD-9 CODES: CPT CODES: 1: 94910 Electronically Signed Out Roosevelt Landaverde MD [facility] Pathology [facility] [address], [place] [address] Technical component performed at [facility], [facility] [address], [place], [address]
--- NOTE | 2016-09-12 14:33 | PCM.PHAPRO ---
Progress Date of Service: Sep 12, 2016 Atrial fibrillation INR = 1.18 Pt is a 85yo male admitted for right lower lobe PNA, restarting warfarin therapy for a history of afib. Goal INR 2-3. Home dose is 1 or 2mg PO daily. Warfarin has been on hold for an EGD & difficulty swallowing. Last dose given on 09/09 was 1mg. Patient is on azithromycin and pip/tazo, both which may interact with warfarin (INR increase) and subcut heparin for DVT prophylaxis. Will give warfarin 1mg PO tonight. INR is ordered daily. Pharmacy will follow and adjust warfarin dose as necessary. Erika Warner PharmD Sep 12, 2016 14:33
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
--- NOTE | 2016-09-12 15:26 | NUR ---
NUTRITION FOLLOW-UP : ASSESS: 85 yo Male admitted for SAMY, dysphagia and failure to thrive. He has reportedly been having progressive wt loss. Per chart review pt's wt was ~70kg in 2013 and is now 65kg. reported that pt eats small, frequent meals at home. Pt's MBS revealed severe pharyngeal and esophageal dysphagia and pt is on a honey thick milkshake consistency diet mostly for comfort feeding. 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 Palliative care is involved and hospice info visit has been set up for tomorrow. Pt and do not want nutrition support. PMHX: Dementia, CHF, COPD, HTN, Afib LABS: Reviewed. Cr 1.36, Ca 7.8, AST 111, ALT 46, Alk Phos 416, ALB 2.9. MEDS: Reviewed. GI: BM x 2 (09/12) CURRENT WTS: 67.2 kg Admit wt: 64.8 kg, BMI 21.1 kg/m2. Pt with reported wt loss DIET: Full liquids, Honey Thick, milkshake consistency. HT verenice mighty shake all trays. PO intake 25% EST. NEEDS: Kcals: [id number] kcal/day (25-30 kcal/kg BW) Pro: 65-80 g/day (1.0-1.2 g/kg BW) NUTRITION DIAGNOSIS: 1.) Inadequate oral intake related to severe dysphagia as evidence by reported wt loss and po intake of only 25% of full liquids--PERSISTS. 2.) Chew/swallowing difficulty related to severe dysphagia as evidenced by need for honey thick full liquids for comfort feeds-PERSISTS. NUTRITION INTERVENTION: 1.) Continue to send chocolate honey thick Mighty Shakes on all trays. 2.) Continue diet per ST recommendations. 3.) Pt is allergic to yellow dye so he cannot have Pineapple or Solomon Gelatein or Washburn Sherbet Magic Cups due to allergy MONITOR / EVAL: PO intake, weight, POC, nutrition status. Will continue to monitor per high nutrition risk guidelines.
--- NOTE | 2016-09-12 15:50 | NUR ---
Evaluation completed. Please go to "Notes" then click on "Assessments and Notes" (bottom left corner of screen). Then select appropriate discipline tab on top of screen.
--- NOTE | 2016-09-12 16:01 | NUR ---
Pain Pt has been requesting pain medication throughout shift. IV Dilaudid has been given Q4. Pt tolerated a small amount of breakfast, became full quickly. Pt was able to feed self, when awake and alert. Palliative care has been in to consult, OT, and PT have worked with the patient as well today.
--- NOTE | 2016-09-12 16:02 | NUR ---
Social Work Note - Continued Discharge Planning: D/A: The Pt is an 85 y/o male that was admitted for SAMY, dysphagia, failure to thrive on 09/06/2016. SW T/C from Tiffani with Palliative Care, of Pt is considering SNF with hospice. SNF preferences are [facility] or [facility]. Palliative Care to meet with Pt and 09/13/2016 at 12:30. Hospice Information Visit will be conducted at 1pm. SW to follow up with the Pt's after Hospice Info Visit. OT eval completed 09/12/16, recommending 24/7 care. See note. SW will continue to follow. P: Palliative Care and Hospice Information Visit scheduled for 09/13/2016. OT eval completed, recommending 24/7 care. SW to follow up with the Pt's after Hospice visit. Stefany Lynch MSW Quality Project Manager PARVIZ Johnson
[2016-09-12 16:09] VITALS: BP 127/68; PULSE 68; RESP 18; O2SAT 93
--- NOTE | 2016-09-12 16:22 | PCM.PNMED ---
Subjective Date of Service Sep 12, 2016 Subjective Patient seen and examined at bedside. No significant overnight event. Unable to interview the patient due to dementia. Exam Vital Signs Vital Sign - Last Date Time Temp Pulse Resp B/P Pulse Ox O2 Delivery O2 Flow Rate FiO2 09/12/16 16:09 36.6 68 18 127/68 93 Room Air 09/06/16 22:25 2.00 Intake and Output 09/11/16 09/11/16 09/12/16 Cumulative From/Thru 15:00 23:00 07:00 09/06/16 15:39 - 09/12/16 06:42 Intake Total 1290 ml 922 ml 99513 ml Output Total 575 ml 500 ml 5825 ml Balance 715 ml 422 ml 5608 ml Intake Oral 100 ml 618 ml IV Total 1150 ml 922 ml 67742 ml Tube Irrigant 40 ml 40 ml Output Urine Total 575 ml 500 ml 5725 ml Urine/Stool Mix 100 ml # Voids 4 # Bowel Movements 2 13 Exam Elderly Chronically ill-appearing. In bed comfortably, confused Mouth: Moist oral mucosa Neck: Supple, no JVD, trachea is midline Chest: Normal respiratory effort, no chest wall tenderness Heart: S1-S2 irregular rate and rhythm no gallop no murmur Lung: Clear bilaterally: No crackles no wheezing Abdomen: Bowel sounds normal all quadrants. non tender, non distended Extremities: No edema tenderness, no cyanosis Neuro: Grossly non focal IVs and Medications Medications Reviewed: Medications were reviewed in detail Lab and Diagnostics Result Diagram: 09/11/16 0630 09/11/16 0630 Microbiology Blood cultures are negative for 24 hours. Estefanía screen is negative Strep Pneumonia screen is negative Respiratory virus screen is negative X-Rays, CTs and MRIs PROCEDURE: X-RAY CHEST ONE VIEW, PORTABLE ([id number]) INDICATIONS: 85-year-old man with chest pain, dysrthymia. TECHNIQUE: One view of the chest was acquired. COMPARISON: [facility], CR, CHEST 1VW (PORTABLE), 11/19/2014, 17: 56. [facility], , CHEST 1VW (PORTABLE), 02/03/2014, 13:49. FINDINGS: Surgical changes and devices: None. Lungs and pleura: There are right basilar infiltrate and consolidation consistent with pneumonia. Calcified granulomatous in the left lung base. There is left basilar scarring. No pleural effusions or pneumothorax. Mediastinum: Mediastinal contours appear normal. Heart size is mildly increased. Bones and chest wall: No suspicious bony lesions. Overlying soft tissues appear unremarkable. IMPRESSION: Right lower lobe pneumonia. Dictated by: Cyndee Lackey M.D. on 09/06/2016 at 15:43 Approved by: Cyndee Lackey M.D. on 09/06/2016 at 15:45 Cardiac Echo Impressions Echocardiogram Report Name: DANNY CLAIRE Date: 09/07/2016 Height: 69 in Hospital Exam Location: [facility] Weight: 143 lb Gender: Male BSA: 1.8 m2 : 1930 Age: 85 yrs BP: 122/82 mmHg Reason For Study: Congestive Heart Failure Ordering Physician: Performed By: Kayleigh Billings[facility]St[facility] Interpretation Summary The left ventricle is severely dilated. Left ventricular systolic function is severely reduced. The ejection fraction is estimated to be 20-25%. The anteroseptal wall appears to have the most preserved contractility but overall there is severe global hypokinesis with significant dyssynchrony. The right ventricle is normal in size and function. The right ventricular systolic pressure is estimated at 29 mmHg assuming a right atrial pressure of 3 mm Hg. The left atrium is severely dilated. Right atrial size is normal. There is moderate calcification extending into the subvalvular apparatus. There is mild to moderate mitral annular calcification. There is mild to moderate mitral regurgitation. Leaflet mobility is mild to moderately reduced. There is no hemodynamically significant valvular aortic stenosis. There is no other significant valvular heart disease. The aortic root is mildly dilated. The ascending aorta is mild-moderately enlarged. The aortic arch is mild-moderately enlarged. Assessment & Plan This is an 85-year-old male with a history of Alzheimer's CHF COPD hypertension atrial fibrillation who was brought to the emergency room by his for increasing problems with swallowing which has been progressive over the past few weeks. No evidence of any fevers chills shortness of breath or wheezing. His evaluation in the emergency room did show a right lower lobe pneumonia. I am not able to get any more history as patient is not very forthcoming or communicative and is currently not at bedside. His white count was noted to be 6.8 and his BUN was 29 creatinine 1.93 which is a little bit worse than last documented in our chart which was several years ago. He denies any chest pain. Denies any nausea or vomiting. He denies any alteration in bowel movements. Chronic dysphagia, present on admission, ongoing : Patient is status post EGD scope unable to be advanced due to mass lesion suspicious for malignancy and Zenker's diverticulum. Biopsy taken. Follow-up pathology report but patient and family are not looking for aggressive treatment. Discussed today with palliative care also the patient in consultation. Patient is on Milkshake consistency diet . He was seen by speech and swallow. The patient living weighted no artificial feeding, no TPN. ENDOSCOPIC DIAGNOSIS: 1. Obstructing esophageal mass lesion. 2. Zenker's diverticulum Acute right lower lobe pneumonia, present on admission, ongoing -Pneumonia likely secondary to aspiration in the setting of patient's dysphagia -Currently being treated with azithromycin and Zosyn to complete 7 days -Viral panel negative -Blood cultures with no growth day 3 -MRSA screen negative Chronic hypertension Atrial fibrillation on anticoagulation with warfarin : Warfarin was on hold for EGD , And resumed Congestive heart failure -Echocardiogram done 09/07/16 demonstrating EF of 20-25% -Consider starting beta tamia, MARRY inhibitor, fluid restriction . COPD -Patient utilizes home oxygen, 2 L at night we will continue this here in the hospital -Patient remained stable on room air during the day at 98% Alzheimer's dementia - continue rivastigmine patch Patient is stable. EGD finding highly suspicious for malignancy. Pathology report is pending. Palliative care and hospice appreciated. Case is discussed Hospice to be consulted Pain Evaluation: Adequate Pain Control GI Prophylaxis: Proton Pump Inhibitor VTE Prophylaxis: Sub-Q Heparin (Unfractionated), Theraputic Anticoag with Warfarin Resuscitation Status: DNR/DNI:Do Not Resuscitate/Intubate Time spent 25 minutes Leif Franco MD Sep 12, 2016 16:22
[2016-09-12] MEDS ORDERED: Isosorbide Mononitrate 30 mg ER24 Tablet PO PRN (17:25)
--- NOTE | 2016-09-12 17:27 | NUR ---
spiritual care: sw referral lengthy conversational visit, pt's reflected on care needs, changes, her own resilience and strength bearing into her role. Pt and spouse interested in contact with [employer]--making contact with davina suarez electrician outside in concrete.
[2016-09-12 18:49] VITALS: BP 121/72; PULSE 66; RESP 22; O2SAT 94
[2016-09-12] MEDS: Fluticasone-Salmererol 250-50 Inhaler INHALATION SCH (20:22)
[2016-09-13 00:33] VITALS: BP 122/65; PULSE 78; RESP 18; O2SAT 93
[2016-09-13] MEDS: HYDROmorphone 1 mg/mL Inj IVPUSH PRN (04:17)
[2016-09-13 04:33] VITALS: BP 121/68; PULSE 68; RESP 18; O2SAT 91
[2016-09-13] MEDS: Piperacillin-Tazo 3.375 Gm Inj 3.375 GM in Dextrose 5% Minibag Plus 50 ML IV SCH ×2 (05:11→17:44)
--- NOTE | 2016-09-13 05:43 | NUR ---
Med/Care Refusal Po meds that had been crushed and put in pudding, pt took a few bites, but then refused. Pt has also been refusing some hygiene care at times.
[2016-09-13 07:51] VITALS: BP 124/76; PULSE 84; RESP 17; O2SAT 91
[2016-09-13 08:23] LABS: INR 1.26 ratio
[2016-09-13] MEDS ORDERED: Fluticasone-Salmererol 250-50 Inhaler INHALATION SCH (08:30)
[2016-09-13] MEDS: RIVASTIGMINE TOPICAL SCH (09:38)
[2016-09-13] MEDS: Fluticasone-Salmererol 250-50 Inhaler INHALATION SCH ×2 (09:42→21:08)
[2016-09-13] MEDS: Azithromycin Inj 500 MG in Dextrose 5% w/Vial Mate 250 ML IV SCH (09:43)
[2016-09-13] MEDS: Heparin 5,000 Unit/mL Inj SUBQ SCH ×2 (10:02→21:09)
[2016-09-13] MEDS: Pantoprazole 4 mg/mL 10 mL Inj IVPUSH SCH (10:03)
--- NOTE | 2016-09-13 11:14 | PCM.PHAPRO ---
Progress Date of Service: Sep 13, 2016 Atrial fibrillation INR = 1.26 Patient continues on warfarin for afib, goal INR 2-3. Will give patient another dose of warfarin 1mg tonight. Patient also on azithromycin and pip/tazo , which may increase INR. Daily INR ordered. Pharmacy will continue to follow patient's warfarin therapy and adjust dose as necessary. Erika Warner PharmD Sep 13, 2016 11:13
[2016-09-13] MEDS: 0.9% NaCl + KCl 20 mEq/L 1,000 ML IV SCH ×2 (12:20→17:25)
--- NOTE | 2016-09-13 12:27 | PCM.PNMED ---
Subjective Date of Service Sep 13, 2016 Subjective Patient seen and examined the bedside. No significant overnight event. Meeting is scheduled today with family members and palliative care to discuss goals of care and possible transfer to hospice Exam Vital Signs Vital Sign - Last Date Time Temp Pulse Resp B/P Pulse Ox O2 Delivery O2 Flow Rate FiO2 09/13/16 07:51 36.6 84 17 124/76 91 Room Air Intake and Output 09/12/16 09/12/16 09/13/16 Cumulative From/Thru 15:00 23:00 07:00 09/06/16 15:39 - 09/13/16 06:28 Intake Total 1206 ml 876 ml 76490 ml Output Total 450 ml 500 ml 6775 ml Balance 756 ml 376 ml 6740 ml Intake Oral 50 ml 668 ml IV Total 1156 ml 876 ml 29097 ml Tube Irrigant 40 ml Output Urine Total 450 ml 500 ml 6675 ml Urine/Stool Mix 100 ml # Voids 1 5 # Bowel Movements 1 3 17 Exam Elderly : . Chronically ill-appearing. No acute distress Neck: Supple, no JVD, trachea is midline, Chest: Normal respiratory effort, no chest wall tenderness Heart: S1-S2 irregular rate and rhythm no gallop no murmur Lung: Clear bilaterally: The crackles no wheezing Abdomen: Soft non tender non distended . No palpable mass Extremities: No edema tenderness, no cyanosis Neuro: Patient moving all extremities Skin: No rash, no ulcers IVs and Medications Medications Reviewed: Medications were reviewed in detail Lab and Diagnostics Result Diagram: 09/11/16 0630 09/11/16 0630 Microbiology Blood cultures are negative for 24 hours. Estefanía screen is negative Strep Pneumonia screen is negative Respiratory virus screen is negative X-Rays, CTs and MRIs PROCEDURE: X-RAY CHEST ONE VIEW, PORTABLE ([id number]) INDICATIONS: 85-year-old man with chest pain, dysrthymia. TECHNIQUE: One view of the chest was acquired. COMPARISON: [facility], CR, CHEST 1VW (PORTABLE), 11/19/2014, 17: 56. [facility], , CHEST 1VW (PORTABLE), 02/03/2014, 13:49. FINDINGS: Surgical changes and devices: None. Lungs and pleura: There are right basilar infiltrate and consolidation consistent with pneumonia. Calcified granulomatous in the left lung base. There is left basilar scarring. No pleural effusions or pneumothorax. Mediastinum: Mediastinal contours appear normal. Heart size is mildly increased. Bones and chest wall: No suspicious bony lesions. Overlying soft tissues appear unremarkable. IMPRESSION: Right lower lobe pneumonia. Dictated by: Cyndee Lackey M.D. on 09/06/2016 at 15:43 Approved by: Cyndee Lackey M.D. on 09/06/2016 at 15:45 Cardiac Echo Impressions Echocardiogram Report Name: DANNY CLAIRE Date: 09/07/2016 Height: 69 in Hospital Exam Location: [facility] Weight: 143 lb Gender: Male BSA: 1.8 m2 : 1930 Age: 85 yrs BP: 122/82 mmHg Reason For Study: Congestive Heart Failure Ordering Physician: Performed By: Kayleigh [facility]ingsleyNE[facility] Interpretation Summary The left ventricle is severely dilated. Left ventricular systolic function is severely reduced. The ejection fraction is estimated to be 20-25%. The anteroseptal wall appears to have the most preserved contractility but overall there is severe global hypokinesis with significant dyssynchrony. The right ventricle is normal in size and function. The right ventricular systolic pressure is estimated at 29 mmHg assuming a right atrial pressure of 3 mm Hg. The left atrium is severely dilated. Right atrial size is normal. There is moderate calcification extending into the subvalvular apparatus. There is mild to moderate mitral annular calcification. There is mild to moderate mitral regurgitation. Leaflet mobility is mild to moderately reduced. There is no hemodynamically significant valvular aortic stenosis. There is no other significant valvular heart disease. The aortic root is mildly dilated. The ascending aorta is mild-moderately enlarged. The aortic arch is mild-moderately enlarged. Additional Diagnostics Pathology report reviewed: INVASIVE SQUAMOUS CARCINOMA POORLY DIFFERENTIATED, WITH BASALOID FEATURES, PARTIALLY NECROTIC, DIFFUSELY INVOLVING ALL BIOPSY FRAGMENTS. Assessment & Plan This is an 85-year-old male with a history of Alzheimer's CHF COPD hypertension atrial fibrillation who was brought to the emergency room by his for increasing problems with swallowing which has been progressive over the past few weeks. No evidence of any fevers chills shortness of breath or wheezing. His evaluation in the emergency room did show a right lower lobe pneumonia. I am not able to get any more history as patient is not very forthcoming or communicative and is currently not at bedside. His white count was noted to be 6.8 and his BUN was 29 creatinine 1.93 which is a little bit worse than last documented in our chart which was several years ago. He denies any chest pain. Denies any nausea or vomiting. He denies any alteration in bowel movements. Chronic dysphagia, present on admission, ongoing : Patient is status post EGD scope unable to be advanced due to mass lesion and Zenker's diverticulum. Patient is on Milkshake consistency diet . He was seen by speech and swallow. Per the patient`s living will : No artificial feeding, no TPN. 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 Meeting to palliative care and the patient's family. Hospice to be consulted Acute right lower lobe pneumonia, present on admission, ongoing -Pneumonia likely secondary to aspiration in the setting of patient's dysphagia -Currently being treated with azithromycin and Zosyn to complete 7 days -Viral panel negative -Blood cultures with no growth day 4 -MRSA screen negative. On contact precaution Chronic hypertension Atrial fibrillation on anticoagulation with warfarin : On Coumadin Congestive heart failure -Echocardiogram done 09/07/16 demonstrating EF of 20-25% -Consider starting beta tamia, MARRY inhibitor, fluid restriction . COPD -Patient utilizes home oxygen, 2 L at night we will continue this here in the hospital -Patient remained stable on room air during the day at 98% Alzheimer's dementia - continue rivastigmine patch Patient is stable. Pathology report positive for invasive poorly differentiated squamous carcinoma of the esophagus Hospice to be consulted GI Prophylaxis: Proton Pump Inhibitor VTE Prophylaxis: Sub-Q Heparin (Unfractionated), Theraputic Anticoag with Warfarin Resuscitation Status: DNR/DNI:Do Not Resuscitate/Intubate Time spent 25 minutes Leif Franco MD Sep 13, 2016 12:27
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
--- NOTE | 2016-09-13 14:35 | NUR ---
Gave access and [facility] faces[facility] per [facility] and patient's has signed consents for hospice.
--- NOTE | 2016-09-13 15:19 | NUR ---
Palliative care note [facility] D/A: Dr. Gao able to speak to both pt son and dtr. Kika from [facility] able to see couple today at 1300. Dr. Gao and this worker meet with spouse and pt at approx 1230. Not able to speak to pt for the length of time envisioned as he needed to use the urinal and have a change of clothes during this time period but Dr. Gao able to recount to him that he likely has esophageal cancer and will not be able to to eat. Pt affirms that he does not wish a feeding tube. Pt nods that he understands he has cancer and just asks for help in being comfortable. He agrees to SNF with [facility]. Difficult to ascertain just how much pt hears or understands but he is able to repeat information back to provider. Dr. Gao has left message for both children asking for email address so that info about feeding tube in elderly with dementia information can be sent. Son has expressed some concern about pt "starving to ." Pt spouse continues to agree about [facility]. She continues to voice that she thinks that [facility] would be a good SNF choice for her spouse. Meet with Kika later who notes that spouse signed up pt for [facility]. Case discussed with Kaylah who notes that agency can open pt for care on 09/15/16. Most likely in the afternoon. Per Dr. Gao, pt does not need to dc same day as [facility] admit. Above discussed with Stefany Lynch RESPITE PROVIDER Practicum Student. P: Palliative care to follow. Tiffani Orantes [facility], [facility]
[2016-09-13 15:53] VITALS: BP 122/61; PULSE 78; RESP 18; O2SAT 93
--- NOTE | 2016-09-13 16:10 | NUR ---
Social Work Note - Continued Discharge Planning: D/A: The Pt is an 85 y/o male that was admitted for carlos, dysphagia, and failure to thrive on 09/06/16. Hospice Information Visit completed 09/13, electing SNF with hospice. Hospice to open on 09/15, time unknown at this point. is requesting referral to [facility], referral request placed to Video Effects Editor Melissa. to visit [facility] this evening. P: Hospice Information Visit completed, electing SNF with hospice. Referrals sent to [facility]. to visit [facility] to follow up with on 09/14 for second preference. Stefany Lynch MSW Sales Counselor PARVIZ Johnson
--- NOTE | 2016-09-13 17:43 | NUR ---
spiritual care: follow arranged for follow up visit from Buddhism clergy, information technology internship engraver automatic Ameya who attempted to briefly meet pt and today. spiritual care to follow through hospital stay as needed.
[2016-09-13 21:24] VITALS: BP 129/77; PULSE 71; RESP 20; O2SAT 95
[2016-09-14 01:41] VITALS: BP 115/70; PULSE 53; RESP 20; O2SAT 95
[2016-09-14] MEDS: 0.9% NaCl + KCl 20 mEq/L 1,000 ML IV SCH ×2 (03:21→19:49)
[2016-09-14] MEDS: Piperacillin-Tazo 3.375 Gm Inj 3.375 GM in Dextrose 5% Minibag Plus 50 ML IV SCH ×2 (05:08→18:34)
--- NOTE | 2016-09-14 06:24 | NUR ---
Left Forearm IV site Left forearm IV site redness. Pt states he has zero pain at site. Will continue to monitor.
[2016-09-14 07:36] LABS: INR 1.57 ratio
[2016-09-14 08:24] VITALS: BP 116/67; PULSE 55; RESP 15; O2SAT 95
--- NOTE | 2016-09-14 08:36 | NUR ---
Spoke with Claudette Matute at [facility] brownfield program coordinator, she would like us to have a conversation with the and let her know there would be a share of cost associated with coming in on [facility] and Hospice. The other option is for patient to wait on opening with hospice and come under [facility] with comfort and skill on that as long as possible. Updated DIRECTOR CRITICAL CARE and she will have a conversation with
[2016-09-14] MEDS: RIVASTIGMINE TOPICAL SCH (08:43)
[2016-09-14] MEDS: Fluticasone-Salmererol 250-50 Inhaler INHALATION SCH ×2 (08:46→20:35)
[2016-09-14] MEDS: Pantoprazole 4 mg/mL 10 mL Inj IVPUSH SCH (08:46)
[2016-09-14] MEDS: Heparin 5,000 Unit/mL Inj SUBQ SCH ×2 (08:47→20:41)
[2016-09-14] MEDS ORDERED: HYDROmorphone 0.5 mg/0.5 mL iSecure Syringe IV ONE (10:00)
[2016-09-14] MEDS: Azithromycin Inj 500 MG in Dextrose 5% w/Vial Mate 250 ML IV SCH (10:30)
--- NOTE | 2016-09-14 13:02 | NUR ---
Gave access and faxed referral to [facility] per LICENSED VOCATIONAL NURSE
--- NOTE | 2016-09-14 13:03 | PCM.PHAPRO ---
Progress Atrial fibrillation WARFARIN MONITORING PER PHARMACY [facility] DFF Date Sep 13-Sep 14 INR 1.18 1.26 1.57 INR change 0.08 0.31 Warf Dose 1MG 1MG 1 MG With uptrending INR, will continue warfarin 1 mg for tonight. Leo Nails Sep 14, 2016 13:03
--- NOTE | 2016-09-14 13:28 | NUR ---
PT NOTE- SNF with Hospice per EMR. Will discharge patient at this time from PT caseload.
--- NOTE | 2016-09-14 14:33 | PCM.DIMED ---
Discharge Instructions Date of Service Sep 14, 2016 Dates of Hospitalization Sep 06, 2016 at 18:50 Discharge Diagnosis Discharge Diagnosis Squamous carcinoma of the esophagus, dysphagia, COPD, pneumonia, Alzheimer dementia, hypertension, history of failure, atrial fibrillation Diet No restrictions, Other Activity No restrictions Patient Instructions Follow up with Hospice MD as needed Leif Franco MD Sep 14, 2016 14:33
--- NOTE | 2016-09-14 14:53 | NUR ---
Palliative care note D/A: Phone call from Kika at Hospice to note that pt spouse is upset as she has discussed with with [facility] request for some funds at admission. Case also discussed with Stefany DEW Practicum Student. Case discussed with Kaylah at [facility] as well as PC Electrical Integrator Ida JJ. Spouse attempting to decide between SNF with [facility] or SNF with [facility]. Spouse also continuing to consider [facility] vs [facility]. Phone call from Kaylah to inquire about plan for pt. At this time, plan continues to work itself out. [facility] will hold open Thurs opening at this time and will await word on 09/15/16 in am to alert as to destination, timing and comfort care vs hospice at admit to SNF. Kaylah can be reached at [phone]. P: Palliative to continue to follow. Tiffani CERVANTES, CCM
--- NOTE | 2016-09-14 15:19 | PCM.PALLBR ---
Palliative Care Recommendation Summary of palliative recommendations: Symptom management (Pain/other): per Attending, Dr. Jimenez. Current Attending is Dr. Franco ([facility] Team) Dysphagia: have reviewed ST recommendations and has signed consent for comfort feeding. She now understands that he may aspirate while eating/drinking and get pneumonia from this. DPOA/Advanced Directives/POLST: 1. DPOA: patient's 2. Advanced Directives: The patient had signed an AD in the past indicating DNR. These prior wishes indicate his wishes for and limits to care that reflect his values and acceptance for a natural end of life. 3. Prior POLST signed by Regina Lozano () [phone] and Zoraida Underwood on 02/06/2014 that states DNR/Limited interventions/Use ABX if can prolong life/No Artificial Nutrition by Tube/ No HD/No AICD. Dr. Gao has changed pt's FULL CODE order this admission to DNR/DNI as requested on his 2013 POLST. 09/14: Nothing new for Palliative Care Provider to report except that patient is sleeping more and occasionally complains of abdominal pain, for which he gets prn IV dilaudid. Once he is on hospice care, he will likely get morphine liquid prn. 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 Recommend: continue giving prn pain meds when pt requests them. 09/13 Family Conference Team Meeting (FCTM): with Dr. Gao, JOSSUE Orantes. We were later joined by hospice access service representative Kika.Dr. Gao informed patient that he has an esophageal mass that is blocking entry of food into his stomach and that it cannot be fixed (due to his advanced age/frailty). He could repeat this information and seemed to understand, saying, "I am a mess. " He began to close his eyes during the subsequent conversation, appearing to "tune out," but still answered at times. Dr. Goa explained that he is too sick for his to care for him alone at home and he needs to go to a nursing facility for more 24/7 care. He nods his head in agreement. He agreed that his could talk to hospice outside the room and let him rest. thinks he understands, but just doesn't want to think about it anymore. 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 Gao late 09/12 and made aware of their father's illness at request of Regina. 09/12 Family Conference Team Meeting (FCTM): with , Dr. Gao, JOSSUE Tiffani Orantes. 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 He started to lose the ability to work at [employer] and [employer] in 1999 and his moved him from [place] to [place] due to harsh peterson and his many visits to hospital for pneumonia. Dr. Gao and Ms. Orantes listened supportively as she reminisced about the joys and hardships of a long marriage and her many years of caregiving as his faculties became more diminished. She doesn't think he will be able to understand his prognosis, and laments that he will before his ancestors who lived until their late 90s. She is intermittently tearful. Dr. Gao counseled her on options for future management to cope with this esophageal mass. Ray is not a surgical candidate, not even a candidate for safe placement of a stent (per Dr. Peña), and Mrs. Lozano says her had always said he didn't want a feeding tube in his stomach. Eventually, she decides to comfort feed him, realizing that he may aspirate and will not absorb the food and drink because it cannot get into his stomach. We discusses what his may look like: increasing fatigue and sleepiness, less and less interest in eating with early satiety, possible SOB if/when he aspirates. We discussed hospice care at length, and some help they might offer. Ms. Orantes discussed possible facility options. agreed to hospice info visit, which will be 09/13 at 1pm. Palliative Care will meet with her and patient on 09/13 at 12:30pm to see if we can try to tell Ray what is happening to his body. She is not sure he will understand, nor are we. She will need to be the person who signs paperwork as he has limited ability to process things. We are not sure what he may remember of what we tell him. 09/08 Patient Perception of Illness: Dr. Gao met with patient 09/08. He passes a brief mini-mental status exam: he knows the month, the year, that he is in a [facility], that Yeimi is for President (which he bemoans as he did not vote for Trtammi). When asked if he wants providers to find out what is making him lose weight and making his "swallow worse" he says that he would like to find out from imaging or procedures. When asked, if this is cancer, would you want to go through treatments like chemotherapy, he says he doesn't think it is cancer, but something else that is easier to fix. From this conversation, it is my medical opinion that the patient is not able to grasp the implications of his illness at this time. I think that the patient has a limited ability to understand risk/benefits of medical treatments/procedures and that we need take his input to some degree, but rely heavily on his as his POA. 09/08 and 09/09 /POA Perception of Illness: Regina consented to endoscopy on , although did not initially want it because he had to go off coumadin, and she was afraid he'd have a stroke, which would make him even more difficult to care for than he is now. She says, "Goodness, we spent months trying to get him into a shower." She says that once he is in a shower, she has to show him each step of bathing because he has no idea what he is supposed to do. "He can't form a plan." "He does not function well enough as it is right now, much less if he were undergoing chemotherapy for cancer." Family/emotional support: PT and live together in house that she bought. She has noted that they have "spent most of his money on his care"; that she is trying to save enough of her money to support her through her life, hence the plan to care for him at home. They have a daughter who lives in [place] and one son, Garfield, who lives in [place]. They are supportive but not able to provide caregiving. Spiritual support: Pt would benefit from fur floor worker visit; he has Sabianism background and this was very important to him in the past. The has a Zoroastrianism background but also has not been involved in any spiritual community since moving to [place]. Problems: Resuscitation Status Resuscitation Status: DNR/DNI:Do Not Resuscitate/Intubate POLST Updates/Changes Previous POLST?: Yes Antibiotics: Determine Use or Limitations Artificially Admin Nutrition: No Artifical Nutrition by Tube POLST Discussed with: Health Care Agent ([facility]) ([facility] is spouse), Spouse/ Other (spouse is [facility]) POLST Review Outcome: No Change Total time 35 minutes; >50% face to face with patient and in care coordination with his/her medical teams. Palliative Brief Note Date of Service Sep 14, 2016 . Patient Identification: This is an 85-year-old male with a history of Alzheimer's dementia,CHF COPD on home oxygen, hypertension, paroxysmal atrial fibrillation on coumadin, and systolic heart failure, mild to moderate mitral regurgitation and with EF 20-25 % (per ECHO), who was brought to the emergency room by his for increasing problems with swallowing which has been progressive over the past few weeks. No evidence of any fevers chills shortness of breath or wheezing. His evaluation in the emergency room did show a right lower lobe pneumonia, thought to be an aspiration event. Hospital Course: Pt started on amiodorone, restarted his coumadin, pneumonia being treated with IV antibiotics. Dr. Peña performed an endoscopy late 09/09 , and unfortunately found a distal esophageal mass that completely obscures lumen into stomach. 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 The details are being worked out by Case Management department. Please refer to their notes. Carly Gao MD Sep 14, 2016 15:19
[2016-09-14 15:53] VITALS: BP 133/67; PULSE 79; RESP 16; O2SAT 95
--- NOTE | 2016-09-14 16:00 | NUR ---
Pain Pt confirms that he has a little epigastric pain. No current pain meds. Hospitalist maki and Dr. Gao called. Verbal order taken from Dr. Gao for Dilaudid 0.5mg IV Q3-[address] Gao confirmed that she would also notify the hospitalist.
--- NOTE | 2016-09-14 16:04 | PCM.PNMED ---
Subjective Date of Service Sep 14, 2016 Subjective Patient seen and examined at bedside. Meeting held with palliative care and patient's . Arrangement is being made for hospice discharge Exam Vital Signs Vital Sign - Last Date Time Temp Pulse Resp B/P Pulse Ox O2 Delivery O2 Flow Rate FiO2 09/14/16 08:24 36.4 55 15 116/67 95 Room Air 09/14/16 01:41 2.00 Intake and Output 09/13/16 09/13/16 09/14/16 Cumulative From/Thru 15:00 23:00 07:00 09/06/16 15:39 - 09/14/16 06:28 Intake Total 748 ml 100 ml 1374 ml 77211 ml Output Total 75 ml 6850 ml Balance 748 ml 25 ml 1374 ml 8887 ml Intake Oral 100 ml 100 ml 868 ml IV Total 748 ml 1274 ml 31371 ml Tube Irrigant 40 ml Output Urine Total 75 ml 6750 ml Urine/Stool Mix 100 ml # Voids 2 3 10 # Bowel Movements 2 1 20 Exam General: Chronically ill-appearing male. And comfortably HEENT: Mouth moist oral mucosa. Sclerae anicteric. Oxygen via nasal cannula Neck: Supple, trachea midline Chest: No chest tenderness, normal respiratory effort Lung: Bilateral crackles. No wheezing Heart: S1 S3 vertebral. Abdomen: Soft non tender non distended Extremities: No cyanosis, no edema IVs and Medications Medications Reviewed: Medications were reviewed in detail Lab and Diagnostics Result Diagram: 09/11/16 0630 09/11/1630 Microbiology Blood cultures are negative for 24 hours. Estefanía screen is negative Strep Pneumonia screen is negative Respiratory virus screen is negative X-Rays, CTs and MRIs PROCEDURE: X-RAY CHEST ONE VIEW, PORTABLE ([id number]) INDICATIONS: 85-year-old man with chest pain, dysrthymia. TECHNIQUE: One view of the chest was acquired. COMPARISON: [facility], CR, CHEST 1VW (PORTABLE), 11/19/2014, 17: 56. [facility], CR, CHEST 1VW (PORTABLE), 02/03/2014, 13:49. FINDINGS: Surgical changes and devices: None. Lungs and pleura: There are right basilar infiltrate and consolidation consistent with pneumonia. Calcified granulomatous in the left lung base. There is left basilar scarring. No pleural effusions or pneumothorax. Mediastinum: Mediastinal contours appear normal. Heart size is mildly increased. Bones and chest wall: No suspicious bony lesions. Overlying soft tissues appear unremarkable. IMPRESSION: Right lower lobe pneumonia. Dictated by: Cyndee Lackey M.D. on 09/06/2016 at 15:43 Approved by: Cyndee Lackey M.D. on 09/06/2016 at 15:45 Cardiac Echo Impressions Echocardiogram Report Name: DANNY CLAIRE Date: 09/07/2016 Height: 69 in Hospital Exam Location: [facility] Weight: 143 lb Gender: Male BSA: 1.8 m2 : 1930 Age: 85 yrs BP: 122/82 mmHg Reason For Study: Congestive Heart Failure Ordering Physician: Performed By: [facility] Interpretation Summary The left ventricle is severely dilated. Left ventricular systolic function is severely reduced. The ejection fraction is estimated to be 20-25%. The anteroseptal wall appears to have the most preserved contractility but overall there is severe global hypokinesis with significant dyssynchrony. The right ventricle is normal in size and function. The right ventricular systolic pressure is estimated at 29 mmHg assuming a right atrial pressure of 3 mm Hg. The left atrium is severely dilated. Right atrial size is normal. There is moderate calcification extending into the subvalvular apparatus. There is mild to moderate mitral annular calcification. There is mild to moderate mitral regurgitation. Leaflet mobility is mild to moderately reduced. There is no hemodynamically significant valvular aortic stenosis. There is no other significant valvular heart disease. The aortic root is mildly dilated. The ascending aorta is mild-moderately enlarged. The aortic arch is mild-moderately enlarged. Additional Diagnostics Pathology report reviewed: INVASIVE SQUAMOUS CARCINOMA POORLY DIFFERENTIATED, WITH BASALOID FEATURES, PARTIALLY NECROTIC, DIFFUSELY INVOLVING ALL BIOPSY FRAGMENTS. Assessment & Plan This is an 85-year-old male with a history of Alzheimer's CHF COPD hypertension atrial fibrillation who was brought to the emergency room by his for increasing problems with swallowing which has been progressive over the past few weeks. No evidence of any fevers chills shortness of breath or wheezing. His evaluation in the emergency room did show a right lower lobe pneumonia. I am not able to get any more history as patient is not very forthcoming or communicative and is currently not at bedside. His white count was noted to be 6.8 and his BUN was 29 creatinine 1.93 which is a little bit worse than last documented in our chart which was several years ago. He denies any chest pain. Denies any nausea or vomiting. He denies any alteration in bowel movements. Chronic dysphagia, present on admission, ongoing : EGD showed mass lesion compatible with malignancy. Pathology report shows squamous carcinoma. Patient is a modified liquid consistency diet. 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 Meeting to palliative care and the patient's family. I spoke with her were performed regarding his conditions Arrangement is underway for inpatient hospice. Discussed with public health social worker Acute right lower lobe pneumonia, present on admission, ongoing Possible aspiration. Continue Zosyn and azithromycin. Chronic hypertension Atrial fibrillation on anticoagulation with warfarin : On Coumadin. INR daily and Coumadin dose adjustment per pharmacist Congestive heart failure -Echocardiogram done 09/07/16 demonstrating EF of 20-25% n . COPD -Patient utilizes home oxygen, 2 L at night we will continue this here in the hospital % Alzheimer's dementia - On rivastigmine patch Pathology report positive for invasive poorly differentiated squamous carcinoma of the esophagus. Discontinue diluted for pain per the patient's request Arrangements being made for patient hospice discharge GI Prophylaxis: Proton Pump Inhibitor VTE Prophylaxis: Sub-Q Heparin (Unfractionated), Theraputic Anticoag with Warfarin Resuscitation Status: DNR/DNI:Do Not Resuscitate/Intubate Time spent 25 minutes Leif Franco MD Sep 14, 2016 16:04
--- NOTE | 2016-09-14 16:23 | NUR ---
Social Work Note - Continued Discharge Planning: D/A: The Pt is an 85 y/o male that was admitted on 09/06/16 for carlos, dysphagia, failure to thrive. Hospice Information Visit completed 09/13/16, Pt's signed on to open this 09/15. SW followed up with the Pt's on 09/14 after Hospice Visit, is agreeable for Pt to transfer to SNF for Hospice when Pt is medically ready. SNF list given to Pt's , was agreeable for referral to [facility] and planned on visiting [facility] after leaving the hospital. Referral requested via Circuitry Negative Inspector Melissa, bed available. SW informed by Circuitry Negative Inspector Jami that [facility] would require a participation rate of $309.96 total to cover move in cost and would be required upfront. SW followed up with the Pt's via telephone this morning 09/14 to inquire about her visit to [facility], to inform her of the participation rate, as well as the status of her being medically ready for D/C. Pt stated that she would prefer [facility] vs [facility], referral for [facility] Visit requested through Circuitry Negative Inspector Jami. Pt informed SW that she would not be able to pay the participation rate. Another option discussed with the Pt's is that she could opt for the Pt to transfer to a SNF on comfort care for 7-10 days before opening with Hospice. The Pts stated that she did not feel like the Pt was ready for D/C and would like to speak with the medical team regarding his status and medications before making a decision, nursing consulted. MD also consulted and spoke with the Pt's via phone regarding medications and other questions and concerns, MD discharge note completed. SW contacted Circuitry Negative Inspector [facility] to inquire about bed availability for [facility], no beds available. SW met with Utilization RN to discuss the concerns regarding the Pt's upcoming D/C, Utilization RN and SW attempted to contact the Pt's twice with no answer. SW and Utilization RN to meet at 9am tomorrow 09/15 to attempt to contact the Pt's for continued discharge planning needs and concerns. SW contacted [facility] to inquire about bed availability, [facility] reported that they may have a bed available tomorrow, SW to follow up in the morning prior to calling the Pt's . JOSSUE T/C from the Pt's LIVIA Maguire at [facility]. Ting reported that the Pt's actual participation rate for hospice at a SNF according to [facility] would be $0 for the rest of August and around $245.38 for every month thereafter. JOSSUE T/C from [facility] for confirmation of this new participation rate, [facility] confirmed and stated that the Pts financial information was incorrect and that she would need to bring in updated financial paperwork. SW to inform the Pt's tomorrow morning during the telephone call around 9am. JOSSUE T/C from Alyssa from Hospice the , JOSSUE informed Alyssa of the Pts current status and of the phone call scheduled for tomorrow 09/14 with the Pt's , JOSSUE, and a Utilization RN. Alyssa stated that the Pt is scheduled for transfer to a SNF by noon tomorrow 09/15 and would like a phone call NLT 10am if the Pt will not be able to be transferred by then. Alyssa reported that the next available Hospice open date would be Monday. JOSSUE to follow up with Alyssa with Hospice by 10am regarding the Pt's discharge plan. P: The Pt is ready to D/C, discharge note completed. Pt's signed for Hospice on 09/13 with an open date of 09/15. [facility] referred to as per Pt's request, bed available. [facility] referral also placed due to the Pt's 's new request for primary preference after facility visit. SW to follow up with [facility] tomorrow 09/15 morning regarding bed availability. JOSSUE and Utilization RN to follow up with Pt's at 9am via telephone regarding ongoing discharge concerns and any new discharge information that becomes available. SW to follow up with Alyssa at Hospice regarding discharge plan NLT tomorrow 09/15 at 10am. SW will continue to follow. PARVIZ Hennessy Flower Stripper PARVIZ Sandra
[2016-09-14] MEDS: HYDROmorphone 0.5 mg/0.5 mL iSecure Syringe IVPUSH PRN ×2 (16:46→20:40)
[2016-09-15 01:12] VITALS: BP 94/59; PULSE 93; RESP 16; O2SAT 93
[2016-09-15] MEDS: HYDROmorphone 0.5 mg/0.5 mL iSecure Syringe IVPUSH PRN ×2 (02:05→07:56)
--- NOTE | 2016-09-15 05:11 | NUR ---
Pain C/O epigastric pain x2. Administered PRN IV Dilauded. Patient sleeping during pain reassessment.
[2016-09-15] MEDS: Piperacillin-Tazo 3.375 Gm Inj 3.375 GM in Dextrose 5% Minibag Plus 50 ML IV SCH (05:36)
[2016-09-15 06:10] LABS: INR 2.1 ratio
[2016-09-15 07:38] VITALS: BP 111/55; PULSE 80; RESP 14; O2SAT 94
[2016-09-15] MEDS: Pantoprazole 4 mg/mL 10 mL Inj IVPUSH SCH (07:49)
[2016-09-15] MEDS: Fluticasone-Salmererol 250-50 Inhaler INHALATION SCH (07:52)
--- NOTE | 2016-09-15 08:02 | PCM.PALLBR ---
Palliative Care Recommendation Summary of palliative recommendations: Symptom management (Pain/other): per Attending, Dr. Jimenez. Current Attending is Dr. Franco ([place] Team) Dysphagia: have reviewed ST recommendations and has signed consent for comfort feeding. She now understands that he may aspirate while eating/drinking and get pneumonia from this. DPOA/Advanced Directives/POLST: 1. DPOA: patient's 2. Advanced Directives: The patient had signed an AD in the past indicating DNR. These prior wishes indicate his wishes for and limits to care that reflect his values and acceptance for a natural end of life. 3. Prior POLST signed by Regina Lozano () [phone] and Zoraida Underwood on 02/06/2014 that states DNR/Limited interventions/Use ABX if can prolong life/No Artificial Nutrition by Tube/ No HD/No AICD. Dr. Gao has changed pt's FULL CODE order this admission to DNR/DNI as requested on his 2013 POLST. 09/15: Dr. Gao wrote prn order for 0.5mg IV q 3-4 hrs for pain. I do NOT recommend pain meds by mouth because pt's esophageal mass blocks entry into stomach and oral medications will not be absorbed. I do recommend that either IV or rectal pain meds be given prn once he transfers to facility. Possible choices at the facility (depending on what is available per facility formulary) are: 1. Continue dilaudid 0.5mg IV q3-4hrs prn 2. Or: morphine 1-2mg IV q 3--4hrs prn 3. Or: morphine long acting 10mg per rectum q 12 hours prn pain. Pain assessment will have to be assessed by facility providers or hospice providers once pt is transferred. Our [facility] Care SW Ida Tateley met with at bedside. Please see her notes for details. Pt likely will discharge by end of day. 09/14: Nothing new for Palliative Care Provider to report except that patient is sleeping more and occasionally complains of abdominal pain, for which he gets prn IV dilaudid. Once he is on hospice care, he will likely get morphine liquid prn. 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 Recommend: continue giving prn pain meds when pt requests them. 09/13 Family Conference Team Meeting (FCTM): with Dr. Gao, JOSSUE Orantes. We were later joined by hospice insurance verification representative Kika.Dr. Gao informed patient that he has an esophageal mass that is blocking entry of food into his stomach and that it cannot be fixed (due to his advanced age/frailty). He could repeat this information and seemed to understand, saying, "I am a mess. " He began to close his eyes during the subsequent conversation, appearing to "tune out," but still answered at times. Dr. Gao explained that he is too sick for his to care for him alone at home and he needs to go to a nursing facility for more 24/7 care. He nods his head in agreement. He agreed that his could talk to hospice outside the room and let him rest. thinks he understands, but just doesn't want to think about it anymore. 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 Gao late 09/12 and made aware of their father's illness at request of Regina. 09/12 Family Conference Team Meeting (FCTM): with , Dr. Gao, JOSSUE Nixon Fidelianataliya. 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 He started to lose the ability to work at [employer] in 1999 and his moved him from [place] to [place] due to harsh peterson and his many visits to hospital for pneumonia. Dr. Gao and Ms. Orantes listened supportively as she reminisced about the joys and hardships of a long marriage and her many years of caregiving as his faculties became more diminished. She doesn't think he will be able to understand his prognosis, and laments that he will before his ancestors who lived until their late 90s. She is intermittently tearful. Dr. Gao counseled her on options for future management to cope with this esophageal mass. Aniceto is not a surgical candidate, not even a candidate for safe placement of a stent (per Dr. Peña), and Mrs. Lozano says her had always said he didn't want a feeding tube in his stomach. Eventually, she decides to comfort feed him, realizing that he may aspirate and will not absorb the food and drink because it cannot get into his stomach. We discusses what his may look like: increasing fatigue and sleepiness, less and less interest in eating with early satiety, possible SOB if/when he aspirates. We discussed hospice care at length, and some help they might offer. Ms. Orantes discussed possible facility options. agreed to hospice info visit, which will be 09/13 at 1pm. Palliative Care will meet with her and patient on 09/13 at 12:30pm to see if we can try to tell Aniceto what is happening to his body. She is not sure he will understand, nor are we. She will need to be the person who signs paperwork as he has limited ability to process things. We are not sure what he may remember of what we tell him. 09/08 Patient Perception of Illness: Dr. Gao met with patient 09/08. He passes a brief mini-mental status exam: he knows the month, the year, that he is in a [facility], that Yeimi is for President (which he bemoans as he did not vote for [email or web address]). When asked if he wants providers to find out what is making him lose weight and making his "swallow worse" he says that he would like to find out from imaging or procedures. When asked, if this is cancer, would you want to go through treatments like chemotherapy, he says he doesn't think it is cancer, but something else that is easier to fix. From this conversation, it is my medical opinion that the patient is not able to grasp the implications of his illness at this time. I think that the patient has a limited ability to understand risk/benefits of medical treatments/procedures and that we need take his input to some degree, but rely heavily on his as his POA. 09/08 and 09/09 /POA Perception of Illness: Regina consented to endoscopy on , although did not initially want it because he had to go off coumadin, and she was afraid he'd have a stroke, which would make him even more difficult to care for than he is now. She says, "Goodness, we spent months trying to get him into a shower." She says that once he is in a shower, she has to show him each step of bathing because he has no idea what he is supposed to do. "He can't form a plan." "He does not function well enough as it is right now, much less if he were undergoing chemotherapy for cancer." Family/emotional support: PT and live together in house that she bought. She has noted that they have "spent most of his money on his care"; that she is trying to save enough of her money to support her through her life, hence the plan to care for him at home. They have a daughter who lives in [place] and one son, Garfield, who lives in [place]. They are supportive but not able to provide caregiving. Spiritual support: Pt would benefit from curator of education visit; he has Rastafari background and this was very important to him in the past. The has a Yazdanism background but also has not been involved in any spiritual community since moving to [place]. Problems: Resuscitation Status Resuscitation Status: DNR/DNI:Do Not Resuscitate/Intubate POLST Updates/Changes Previous POLST?: Yes Antibiotics: Determine Use or Limitations Artificially Admin Nutrition: No Artifical Nutrition by Tube POLST Discussed with: Health Care Agent (DPOAHC) (DPOAHC is spouse), Spouse/ Other (spouse is DPOAHC) POLST Review Outcome: No Change Total time 25 minutes; >50% face to face with patient and/or family, providing counselling regarding plans and recommendations, and in care coordination with his/her medical teams. I also spent an additional [ ] minutes counseling for advanced care planning with the patient/the patients family/the surrogate decision maker. Palliative Brief Note Date of Service Sep 15, 2016 . Patient Identification: This is an 85-year-old male with a history of Alzheimer's dementia,CHF COPD on home oxygen, hypertension, paroxysmal atrial fibrillation on coumadin, and systolic heart failure, mild to moderate mitral regurgitation and with EF 20-25 % (per ECHO), who was brought to the emergency room by his for increasing problems with swallowing which has been progressive over the past few weeks. No evidence of any fevers chills shortness of breath or wheezing. His evaluation in the emergency room did show a right lower lobe pneumonia, thought to be an aspiration event. Hospital Course: Pt started on amiodorone, restarted his coumadin, pneumonia being treated with IV antibiotics. Dr. Peña performed an endoscopy on 09/09, and unfortunately found a distal esophageal mass that completely obscures lumen into stomach. 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 The details are being worked out by Case Management department. Please refer to their notes. Carly Gao MD Sep 15, 2016 08:02
--- NOTE | 2016-09-15 08:19 | PCM.PHAPRO ---
Progress Atrial fibrillation 1.18 1.26 1.57 2.10 0.08 0.31 0.53 1MG 1MG 1 MG 0.5 Ross Garcia Sep 15, 2016 08:19
[2016-09-15] MEDS: RIVASTIGMINE TOPICAL SCH (09:47)
[2016-09-15] MEDS: Heparin 5,000 Unit/mL Inj SUBQ SCH (09:53)
--- NOTE | 2016-09-15 10:13 | NUR ---
Spoke to Myrtle at [facility], she is hopeful she can accept pt today. They are working on some bed changes to make a room for the pt. Myrtle will let me know by 11:30a. advised LILIANA QUINONEZ and LILLIANAM for TOBACCO BALER> Addendum: 09/15/16 at 1210 by DEB PAN SS received CB from Myrtle they are able to accept pt today. TOBACCO BALER to advise Myrtle of Hospice open date. Arranged BLS transport at 2pm with [facility]. Advised TOBACCO BALER.
[2016-09-15] MEDS: Azithromycin Inj 500 MG in Dextrose 5% w/Vial Mate 250 ML IV SCH (10:38)
--- NOTE | 2016-09-15 11:03 | NUR ---
Case Management: Spoke with (Regina) with [employer] present at pt's bedside. Pt did not engage in conversation, eyes closed during discussion. verbalizing she spoke with a [facility] car sales representative who has informed her pt's stay at SNF should be covered by insurance. was advised of Medicare discharge appeal rights, but states if [facility] has bed today, she is willing for pt to be transferred. [employer] answered 's questions re: mode of transportation. informed that [facility] (her first choice) is to advise [employer] by 11:30 am if can accept pt today. [employer] to call [facility] by 11:30 am to obtain status update and agreeable to remain at pt's bedside until 11:45 am, for status update. Hospitalist in room for latter part of discussion, answering 's questions re: biopsy results. Will follow for dc to SNF today. LILIANA Briggs RN
--- NOTE | 2016-09-15 11:39 | NUR ---
Mentation patient is alert with confusion. c/o pain this morning beginning of shift 12/07 and use written communication on white board. PRN Dilaudid given with effective results. Discharge pending and please review social work associate notes for more r/t discharge. on Oxygen for 2LNC 94%. at bed side and patient had some shake from breakfast. IV ABO running as ordered for PNA. lung sounds clear at the bases. no sign and symptoms of cough, trouble breathing or shortness of breath at rest noted. stable vital signs and afebrile. doctor at bed side this morning. call light with in reach for safety. notified doctor r/t IV fluids for 0.9%NACL+KCL 20MEQ for this morning or potassium levels and states," Will discontinue." will continue to monitor vital signs, lung sounds, and safety.
--- NOTE | 2016-09-15 13:33 | NUR ---
Vital signs Paged doctor r/t IV infiltration and swelling, warm to touch compare to both arms on left arm peripheral IV Access and BP 93/51, pulse 73, Temp 99.1, Oxygen 93% 2LNC, RR14 and orders to discontinue left IV and ICE the site, and for 99.1 temp and doctor said to ask the if would like to stay little bit longer. notified and patient at bed side and states," go ahead with the current discharge plan, if they have nurses to monitor for fever and left arm swelling." Report given to admission nurse Rachael for low grade fever and left IV infiltration. IV ABO running currently on right arm and will be done approx 1438. notified manager social responsibility to rearrange for 3oclock and aware. no sign and symptoms of pain or discomfort noted. last BM this shift.
--- NOTE | 2016-09-15 13:46 | NUR ---
Palliative Care Family Visit09/15/1711:45PM D: This securities underwriter spoke with pt.'s , Regina, about how she is coping with all that has happened over the course of pt.'s hospital stay, and also about how she feels regarding pt.'s transition to Hospice services. Pt. will discharge from [facility] today at 3pm to [facility] and [facility] will open pt. to services on 09/17/16. Regina shared that she feels both sad and anxious regarding the reality that pt. is closer to end of life. She noted that she has provided care support to him for many years, and that she feels 'at a loss' about how to spend her time now that he is not at home. Pt. and Regina live in [place] and Regina noted that she does feel very socially connected in that community. She shared that their daughter and son are both in touch regularly but do not live in the area. Regina is unsure if her children will come to visit in the coming weeks. This securities underwriter let Regina know that her Hospice team will include a social work coordinator and sluice tender to provide support to her around all the complex feelings she has about her 's end of life experience. Regina expressed she appreciate the change to talk through some of what she has felt in the last many days. A: Pt.'s is experiencing sadness and uncertainty about how to cope with pt.'s declining health. She seems very open to conversation about her experience. P: Pt. to transfer to [facility] with [facility] services to start on 09/17/16. PARVIZ Guzman, [facility]
[2016-09-15 13:51] VITALS: BP 93/51; PULSE 73; O2SAT 93
--- NOTE | 2016-09-15 13:58 | NUR ---
NUTRITION FOLLOW-UP : ASSESS: 85 yo Male admitted for SAMY, dysphagia and failure to thrive. He has reportedly been having progressive wt loss. Per chart review pt's wt was ~70kg in 2013 and is now 65kg. Pt's MBS revealed severe pharyngeal and esophageal dysphagia and pt is on a honey thick milkshake consistency diet for comfort feeding. PO has not been recorded well. Last PO intake recorded was 09/11. EGD found distal esophageal mass that completely obscures lumen into stomach. Pathology came back as invasive squamous cell cancer. Palliative care is involved and family has decided to discharge on hospice. Pt and do not want nutrition support. PMHX: Dementia, CHF, COPD, HTN, Afib LABS: Reviewed. Cr 1.36, Ca 7.8, AST 111, ALT 46, Alk Phos 416, ALB 2.9. MEDS: Reviewed. GI: BM x 2 (09/15) CURRENT WTS: 67.2 kg Admit wt: 64.8 kg, BMI 21.1 kg/m2. Pt with reported wt loss DIET: Full liquids, Honey Thick, milkshake consistency. HT verenice mighty shake all trays. PO intake 25% EST. NEEDS: Kcals: 2468-9756 kcal/day (25-30 kcal/kg BW) Pro: 65-80 g/day (1.0-1.2 g/kg BW) NUTRITION DIAGNOSIS: 1.) Inadequate oral intake related to severe dysphagia as evidence by reported wt loss and po intake of only 25% of full liquids--PERSISTS. 2.) Chew/swallowing difficulty related to severe dysphagia as evidenced by need for honey thick full liquids for comfort feeds-PERSISTS. NUTRITION INTERVENTION: 1.) Continue to send chocolate honey thick Mighty Shakes on all trays. 2.) Continue diet per ST recommendations. 3.) Pt is allergic to yellow dye so he cannot have Pineapple or [place] Gelatein or [place] Sherbet Magic Cups due to allergy MONITOR / EVAL: PO intake, weight, POC, nutrition status. Will continue to monitor per high nutrition risk guidelines.
--- NOTE | 2016-09-15 14:34 | NUR ---
Social Work Discharge: SW met with patient and at bedside. [facility] able to accept patient today. Bed available and no funds required up front from at this time. SW faxed discharge paperwork and PASSR to facility. UR specialist coordinated transport for waste picker at 3pm today via [facility]. Patient aware and in agreement. SW spoke to [facility] rep Zelaya who states plan to open services on Monday from 10-11am. [facility] advised. JOSSUE will continue to follow if further needs arise. PLAN: [facility] under hospice services via [facility]. Hospice to open on Monday from 10-11am. SW to follow. Donnell JJ
--- NOTE | 2016-09-15 15:32 | NUR ---
Discharged patient discharged with [facility] on the stretcher. Denied pain or discomfort. Doctor signed prescription and sent with patient for PRN pain management. Advair inhaler and Rivastigmine patches sent with patient to [facility]. Report given to Rachael admission nurse. Report also given to [facility].
--- NOTE | 2016-09-15 16:54 | PCM.DC.MED ---
Discharge Summary Date of Service Sep 15, 2016 Dates of Hospitalization Date of Hospital Admission Sep 06, 2016 at 18:50 Date of Discharge: Sep 15, 2016 Providers: Admitting Physician: Rylee Stuart MD Primary Care Physician: Doroteo Cooper MD Attending Physician: Rylee Stuart MD Diagnosis at Time of Discharge Diagnosis at Time of Discharge Squamous carcinoma of the esophagus, dysphagia, COPD, pneumonia, Alzheimer dementia, hypertension, history of failure, atrial fibrillation Procedures XRay, CTs & MRIs PROCEDURE: X-RAY CHEST ONE VIEW, PORTABLE ([id number]) INDICATIONS: 85-year-old man with chest pain, dysrthymia. TECHNIQUE: One view of the chest was acquired. COMPARISON: [facility], , CHEST 1VW (PORTABLE), 11/19/2014, 17: 56. [facility], , CHEST 1VW (PORTABLE), 02/03/2014, 13:49. FINDINGS: Surgical changes and devices: None. Lungs and pleura: There are right basilar infiltrate and consolidation consistent with pneumonia. Calcified granulomatous in the left lung base. There is left basilar scarring. No pleural effusions or pneumothorax. Mediastinum: Mediastinal contours appear normal. Heart size is mildly increased. Bones and chest wall: No suspicious bony lesions. Overlying soft tissues appear unremarkable. IMPRESSION: Right lower lobe pneumonia. Dictated by: Cyndee Lackey M.D. on 09/06/2016 at 15:43 Approved by: Cyndee Lackey M.D. on 09/06/2016 at 15:45 Cardiac Echo Impression Echocardiogram Report Name: DANNY CLAIRE Date: 09/07/2016 Height: 69 in Hospital Exam Location: [facility] Weight: 143 lb Gender: Male BSA: 1.8 m2 : 1930 Age: 85 yrs BP: 122/82 mmHg Reason For Study: Congestive Heart Failure Ordering Physician: Performed By: [facility] Interpretation Summary The left ventricle is severely dilated. Left ventricular systolic function is severely reduced. The ejection fraction is estimated to be 20-25%. The anteroseptal wall appears to have the most preserved contractility but overall there is severe global hypokinesis with significant dyssynchrony. The right ventricle is normal in size and function. The right ventricular systolic pressure is estimated at 29 mmHg assuming a right atrial pressure of 3 mm Hg. The left atrium is severely dilated. Right atrial size is normal. There is moderate calcification extending into the subvalvular apparatus. There is mild to moderate mitral annular calcification. There is mild to moderate mitral regurgitation. Leaflet mobility is mild to moderately reduced. There is no hemodynamically significant valvular aortic stenosis. There is no other significant valvular heart disease. The aortic root is mildly dilated. The ascending aorta is mild-moderately enlarged. The aortic arch is mild-moderately enlarged. Other Diagnostics Pathology report reviewed: INVASIVE SQUAMOUS CARCINOMA POORLY DIFFERENTIATED, WITH BASALOID FEATURES, PARTIALLY NECROTIC, DIFFUSELY INVOLVING ALL BIOPSY FRAGMENTS. Brief History This is an 85-year-old male with a history of Alzheimer's dementia,CHF COPD on home oxygen, hypertension, paroxysmal atrial fibrillation on coumadin, and systolic heart failure, mild to moderate mitral regurgitation and with EF 20-25 % (per ECHO), who was brought to the emergency room by his for increasing problems with swallowing which has been progressive over the past few weeks. No evidence of any fevers chills shortness of breath or wheezing. His evaluation in the emergency room did show a right lower lobe pneumonia, thought to be an aspiration event. I am not able to get any more history as patient is not very forthcoming or communicative and is currently not at bedside. His white count was noted to be 6.8 and his BUN was 29 creatinine 1.93 which is a little bit worse than last documented in our chart which was several years ago. He denies any chest pain. Denies any nausea or vomiting. He denies any alteration in bowel movements. R Hospital Course This is an 85-year-old male with a history of Alzheimer's CHF COPD hypertension atrial fibrillation who was brought to the emergency room by his for increasing problems with swallowing which has been progressive over the past few weeks. No evidence of any fevers chills shortness of breath or wheezing. His evaluation in the emergency room did show a right lower lobe pneumonia. I am not able to get any more history as patient is not very forthcoming or communicative and is currently not at bedside. His white count was noted to be 6.8 and his BUN was 29 creatinine 1.93 which is a little bit worse than last documented in our chart which was several years ago. He denies any chest pain. Denies any nausea or vomiting. He denies any alteration in bowel movements. Chronic dysphagia, present on admission, ongoing : EGD showed mass lesion compatible with malignancy. Pathology report shows squamous carcinoma. Patient is a modified liquid consistency diet. No chemotherapy, no radiation therapy. 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 Patient was treated with Zosyn and vancomycin during the course of hospital stay. He is discharged to hospice and does not want him to continue on any further antibiotics treatment Chronic hypertension Atrial fibrillation on anticoagulation with warfarin Congestive heart failure -Echocardiogram done 09/07/16 demonstrating EF of 20-25%. COPD on 2 liter of oxygen via nasal cannula Alzheimer's dementia - On rivastigmine patch This is a very sick patient with advanced squamous cell carcinoma of the use of the is over this causing obstruction and dysphagia. His overall prognosis is very poor. Patient is discharged to hospice Exam Vital Signs (Last) Date Time Temp Pulse Resp B/P Pulse Ox O2 Delivery O2 Flow Rate FiO2 09/15/16 13:51 37.3 73 93/51 93 Nasal Cannula 2.00 09/15/16 07:38 14 Exam General: Ill appearing male. Frail . NAD HEENT: Sclerae anicteric Neck: Supple, trachea midline, no JVD Chest: No chest tenderness, normal respiratory effort Lung: Bilateral crackles. Decrease air entry in both lung shah Heart: S1 S2, irregular rate. No gallop Abdomen: Soft , non tender , non distended Extremities: No cyanosis, no edema Neuro : Lethargic. Test 09/06/16 00:12 09/06/16 15:07 09/07/16 03:15 09/08/16 05:21 Urine Color Yellow (YELLOW) Urine Appearance Clear (CLEAR,HAZY) Urine pH 7.5 (5.0-8.0) Urine Specific Conifer 1.015 (1.003-1.035) Urine Protein Negativemg/dL (NEG,TRACE) Urine Glucose (UA) Negativemg/dL (NEGATIVE) Urine Ketones Negativemg/dL (NEGATIVE) Urine Occult Blood Negative (NEGATIVE) Urine Nitrite Negative (NEGATIVE) Urine Bilirubin Negative (NEGATIVE) Urine Urobilinogen Normalmg/dL (NORMAL) Urine Leukocyte Esterase Negative (NEGATIVE) Urine RBC 0-2/hpf (0-2) Urine WBC 0-5/hpf (0-5) Urine Epithelial Cells Occasional/hpf (NONE-MOD) Urine Crystals None seen (NONE SEEN) Urine Bacteria None/hpf (NONE-FEW) Urine Hyaline Casts None/lpf (NONE) Urine Granular Casts None seen (NONE SEEN) Urine Waxy Casts None seen (NONE SEEN) Urine Red Blood Cell Casts None seen (NONE SEEN) Urine White Blood Cell Casts None seen (NONE SEEN) Urine Mucus Present (None Seen) Urine Trichomonas None seen (NONE SEEN) Urine Yeast None (NONE SEEN) Urinalysis Comment None Urine Culture Reflexed Not indicated Urine Legionella pneumophilia Ag Negative (Negative) Lactic Acid Level 1.3mmol/L (0.4-2.0) Hold Alvarez Top Tube Received (Received) Troponin T 0.010ug/L (0.0-0.011) Phosphorus Level 2.9mg/dL (2.5-4.9) Magnesium Level 1.9mg/dL (1.6-2.6) Procalcitonin 0.33ng/mL (0.00-0.08) Test 09/11/16 06:30 09/15/16 05:40 White Blood Count 9.8th/mm3 (3.8-10.1) Red Blood Count 4.78mil/mm3 (4.40-5.80) Hemoglobin 13.7g/dL (13.8-17.2) Hematocrit 41.9% (41.0-50.0) Mean Corpuscular Volume 87.7fL (81-100) Mean Corpuscular Hemoglobin 28.7pg (27.0-35.0) Mean Corpuscular Hemoglobin Concent 32.7% (32.0-37.0) Red Cell Distribution Width 14.0% (12.3-15.4) Platelet Count 224bil/L (150-400) Neutrophils (%) (Auto) 78.5% (40-74) Lymphocytes (%) (Auto) 6.9% (14-46) Monocytes (%) (Auto) 13.0% (4-12) Eosinophils (%) (Auto) 0.1% (0-5) Basophils (%) (Auto) 0.3% (0-3) Sodium Level 136mEq/L (134-144) Potassium Level 4.4mEq/L (3.5-5.2) Chloride Level 102mEq/L (97-108) Carbon Dioxide Level 20mmol/L (18-29) Blood Urea Nitrogen 11mg/dL (8-27) Creatinine 1.36mg/dL (0.76-1.27) Estimat Glomerular Filtration Rate 53mL/min (>59) Glucose Level 65mg/dL (60-99) Calcium Level 7.8mg/dL (8.5-10.1) Total Bilirubin 0.8mg/dL (0.0-1.2) Aspartate Amino Transf (AST/SGOT) 111U/L (0-50) Alanine Aminotransferase (ALT/SGPT) 46U/L (0-44) Alkaline Phosphatase 416U/L (25-160) Total Protein 4.9g/dL (6.4-8.4) Albumin 2.9g/dL (3.4-5.0) Prothrombin Time 22.8sec (8.1-12.5) Prothromb Time International Ratio 2.10ratio Microbiology Results Blood cultures are negative for 24 hours. Estefanía screen is negative Strep Pneumonia screen is negative Respiratory virus screen is negative Discharge Medications Discharge Medications ([oxygen]) 2 L NA HS (Reported) Alendronate Oral Soln (Alendronate Oral Soln) 70 Mg/75 Ml Solution 70 MG PO WEEKLY (Reported) Amiodarone (Amiodarone) 100 Mg Tablet 100 MG PO DAILY (Reported) Atorvastatin Calcium (Atorvastatin Calcium) 10 Mg Tablet 10 MG PO HS (Reported) Calcium Carbonate/Vitamin D3 (Calcium 500 mg Chewable Tablet) 1 Each Tab.chew 1 EACH PO DAILY (Reported) Fluticasone Propionate (Fluticasone Propionate) 50 Mcg/Actuation [place].susp 2 SPRAYS NASAL BID (Reported) Fluticasone/Salmeterol (Advair 250-50 Diskus) 60 Puff/Inh Disk 1 PUFF IH DAILY ( Reported) Fluticasone/Salmeterol (Advair 250-50 Diskus) 60 Puff/Inh Disk 1 PUFF IH BID ( Reported) Furosemide (Furosemide) 20 Mg Tab 20 MG PO Q2DAY (Reported) Memantine HCl (Namenda-XR) 28 Mg Cap.spr.24 28 MG PO DAILY (Reported) Montelukast (Singulair) 10 Mg Tablet 10 MG PO HS (Reported) Omeprazole Magnesium (Prilosec Otc) 20 Mg Tablet.dr 20 MG PO DAILY (Reported) Quetiapine Fumarate (Seroquel) 100 Mg Tablet 100 MG PO HS (Reported) Rivastigmine (Rivastigmine) 13.3 Mg/24 Hour Patch.td24 2 PATCH TRANSDERM DAILY ( Reported) Warfarin Sodium (Warfarin Sodium) 2 Mg Tablet 2 MG PO DAILY (Reported) Monday, Monday, , Monday Warfarin Sodium (Warfarin Sodium) 1 Mg Tablet 1 MG PO DAILY (Reported) Monday, Monday, Monday As needed Isosorbide MN ER (Isosorbide MN ER) 30 Mg Tab.er.24h 30-60 MG PO DAILY PRN PRN For Chest Pain (Reported) Followup Plan Disposition: Patient is discharged to hospice Follow-up plan Follow-up with hospice MDen as needed Discharge Diet: No restrictions, Other Discharge Activity: No restrictions Patient Instructions Follow up with Hospice MD as needed Time spent 35 minutes pain arranging for discharge. Patient seen and examined prior to discharge Leif Franco MD Sep 15, 2016 16:54
== END 2016-09-15 15:35 | DRG 374 ==
LOC: SED 13:28 → MOC 18:50
PROVIDERS: ADMIT Specialist; ATTEND Specialist
PROC: 0DB58ZX Excision of Esophagus, Via Natural or Artificial Opening Endoscopic, Diagnostic (ICD-10-PCS; principal; 2016-09-09 14:00)
DX: C15.9 Malignant neoplasm of esophagus, unspecified (principal); J69.0 Pneumonitis due to inhalation of food and vomit; I50.22 Chronic systolic (congestive) heart failure; E46 Unspecified protein-calorie malnutrition; R64 Cachexia; K22.5 Diverticulum of esophagus, acquired; Z68.21 Body mass index [BMI] 21.0-21.9, adult; Z79.01 Long term (current) use of anticoagulants; I48.2 Chronic atrial fibrillation; R13.10 Dysphagia, unspecified; J44.9 Chronic obstructive pulmonary disease, unspecified; G30.9 Alzheimer's disease, unspecified; F02.80 Dementia in other diseases classified elsewhere, unspecified severity, without behavioral disturbance, psychotic disturbance, mood disturbance, and anxiety; Z87.891 Personal history of nicotine dependence; Z99.81 Dependence on supplemental oxygen; Z51.5 Encounter for palliative care; Z66 Do not resuscitate